=== PATIENT | male | born 1960 | race Caucasian/White ===

== ENCOUNTER 2017-12-29 23:05 | Inpatient (IN) | payer BC ==
[~2017-12-29 23:05] MED LIST: HYDROmorphone 0.5 MG/0.5 ML Syringe IVPUSH ONE; Lactated Ringers 1,000 ML IV ONE; Metoclopramide 10 MG/2 ML SDV IVPUSH ONE
--- NOTE | 2017-12-29 23:05 | EDM.PDOC ---
ED HPI GENERAL MEDICAL PROBLEM - General Chief Complaint: Abdominal Pain Stated Complaint: AMBULANCE Time Seen by Provider: 12/29/17 10:55 Source of Information: Reports: Patient History Limitations: Reports: No Limitations - History of Present Illness INITIAL COMMENTS - FREE TEXT/NARRATIVE: This 57 yo male patient reports to the ED with increased abdominal pain. The patient reports that he has a history of pancreatitis. The patient reports that he was last seen in [facility] on November 17 for similar symptoms. The patient reports that he normally has abdominal pain that he can control with Oxycodone, but today he has not been able to reduce his pain with his pain medications. The patient was given Fentanyl by [facility] prior to his arrival in the ED with no pain relief. The patient reports his current pain is a 9/10. The pain starts in his left upper abdomen and radiates to his left ear. The patient reports that he stopped drinking 2 1/2 years ago and stopped smoking November 17 of this year. 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 Left Upper Abdomen Pain Score (Numeric/FACES): 9 - Related Data Allergies Allergy/AdvReac Type Severity Reaction Status Date / Time No Known Allergies Allergy Unverified 07/07/14 12:40 Home Meds: Home Meds Aspirin [Lo-Dose Aspirin EC] 81 mg PO DAILY 12/29/17 [History] Atenolol 50 mg PO DAILY 12/29/17 [History] Clopidogrel Bisulfate [Clopidogrel] 75 mg PO DAILY 12/29/17 [History] Creon 12,000 Unit Cap 12,000 unit PO ASDIRECTED 12/29/17 [History] Isosorbide Mononitrate [Imdur] 30 mg PO ACLUNCH 12/29/17 [History] Pantoprazole Sodium 40 mg PO DAILY 12/29/17 [History] Potassium 99 mg PO DAILY 12/29/17 [History] Tylenol 500 mg PO TID PRN 12/29/17 [History] Umeclidinium [place] [Incruse Ellipta*] 1 dose INH DAILY 12/29/17 [History] oxyCODONE 5 mg PO Q8H PRN 12/29/17 [History] ED ROS GENERAL - Review of Systems Review Of Systems: ROS reveals no pertinent complaints other than HPI. ED EXAM, GI/ABD - Physical Exam Exam: See Below Exam Limited By: No Limitations General Appearance: Alert, WD/WN, Severe Distress, Thin Eyes: Bilateral: Normal Appearance, EOMI Ears: Normal External Exam, Normal Canal, Hearing Grossly Normal, Normal TMs Nose: Normal Inspection, Normal Mucosa, No Blood Throat/Mouth: Normal Inspection, Normal Lips, Normal Teeth, Normal Gums, Normal Oropharynx, Normal Voice, No Airway Compromise Head: Atraumatic, Normocephalic Neck: Normal Inspection, Supple, Non-Tender, Full Range of Motion Respiratory/Chest: No Respiratory Distress, Lungs Clear, Normal Breath Sounds, No Accessory Muscle Use, Chest Non-Tender Cardiovascular: Normal Peripheral Pulses, Regular Rate, Rhythm, No Edema, No Gallop, No JVD, No Murmur, No Rub GI/Abdominal Exam: Normal Bowel Sounds, Guarding, Tender (upper abdomen) (Male) Exam: Deferred Rectal (Males) Exam: Deferred Back Exam: Normal Inspection, Full Range of Motion, NT Extremities: Normal Inspection, Normal Range of Motion, Non-Tender, Normal Capillary Refill, No Pedal Edema Neurological: Alert, Oriented, CN II-XII Intact, Normal Cognition Psychiatric: Normal Affect, Normal Mood Skin Exam: Warm, Dry, Intact, Normal Color, No Rash Lymphatic: No Adenopathy Course - Vital Signs Last Recorded V/S: Last Vital Signs Temp 37.2 C 12/29/17 22:40 Pulse 96 12/29/17 22:40 Resp 23 H 12/29/17 22:40 BP 143/77 H 12/29/17 22:40 Pulse Ox 92 L 12/29/17 22:40 - Orders/Labs/Meds Orders: Active Orders 24 hr Category Date Time Status UA W/MICROSCOPIC [URIN] Stat Lab 12/29/17 22:56 Ordered Lactated Ringers [Ringers, Lactated] 1,000 ml Med 12/29/17 22:55 Ordered IV .BOLUS Medication Orders Lactated Ringer's (Ringers, Lactated) 1,000 mls @ 500 mls/hr IV .BOLUS ONE Stop: 12/30/17 00:54 Last Admin: 07/24/18 23:10 Dose: 500 mls/hr Labs: Laboratory Tests 12/29/17 12/29/17 12/29/17 Range/Units 23:10 23:10 23:10 WBC 8.5 (5.0-10.0) 10^3/uL RBC 4.84 (4.6-6.2) 10^6/uL Hgb 12.9 L (14.0-18.0) g/dL Hct 38.0 L (40.0-54.0) % MCV 78.5 L (80-100) fL MCH 26.7 L (27.0-34.0) pg MCHC 33.9 (33.0-35.0) g/dL Plt Count 330 (150-450) 10^3/uL Neut % (Auto) 65.9 (42.2-75.2) % Lymph % (Auto) 16.9 L (20.5-50.1) % [place] % (Auto) 11.0 H (2-8) % Eos % (Auto) 6.1 H (1.0-3.0) % Baso % (Auto) 0.1 (0.0-1.0) % Sodium 135 (135-145) mmol/L Potassium 3.7 (3.6-5.0) mmol/L Chloride 102 (101-111) mmol/L Carbon Dioxide 24.0 (21.0-31.0) mmol/L Anion Gap 12.7 BUN 15 (7-18) mg/dL Creatinine 0.6 (0.6-1.3) mg/dL Est Cr Clr Drug Dosing 109.35 mL/min Estimated GFR (MDRD) > 60 BUN/Creatinine Ratio 25.00 Glucose 96 (74-105) mg/dL Calcium 8.6 (8.4-10.2) mg/dl Magnesium 1.4 L (1.8-2.5) mg/dL Total Bilirubin 0.9 (0.2-1.0) mg/dL AST 30 (10-42) IU/L ALT 18 (10-60) IU/L Alkaline Phosphatase 73 (42-121) IU/L Total Protein 7.4 (6.7-8.2) g/dl Albumin 3.4 (3.2-5.5) g/dl Globulin 4.0 Albumin/Globulin Ratio 0.85 Amylase 1451 H (28-100) U/L Lipase 366 H (22-51) U/L Acetaminophen 12/29/17 Range/Units 23:10 WBC (5.0-10.0) 10^3/uL RBC (4.6-6.2) 10^6/uL Hgb (14.0-18.0) g/dL Hct (40.0-54.0) % MCV (80-100) fL MCH (27.0-34.0) pg MCHC (33.0-35.0) g/dL Plt Count (150-450) 10^3/uL Neut % (Auto) (42.2-75.2) % Lymph % (Auto) (20.5-50.1) % [place] % (Auto) (2-8) % Eos % (Auto) (1.0-3.0) % Baso % (Auto) (0.0-1.0) % Sodium (135-145) mmol/L Potassium (3.6-5.0) mmol/L Chloride (101-111) mmol/L Carbon Dioxide (21.0-31.0) mmol/L Anion Gap BUN (7-18) mg/dL Creatinine (0.6-1.3) mg/dL Est Cr Clr Drug Dosing mL/min Estimated GFR (MDRD) BUN/Creatinine Ratio Glucose (74-105) mg/dL Calcium (8.4-10.2) mg/dl Magnesium (1.8-2.5) mg/dL Total Bilirubin (0.2-1.0) mg/dL AST (10-42) IU/L ALT (10-60) IU/L Alkaline Phosphatase (42-121) IU/L Total Protein (6.7-8.2) g/dl Albumin (3.2-5.5) g/dl Globulin Albumin/Globulin Ratio Amylase (28-100) U/L Lipase (22-51) U/L Acetaminophen < 10 Meds: Medications Generic Name Dose Route Start Last Admin Trade Name Freq PRN Reason Stop Dose Admin Lactated Ringer's 1,000 mls @ 500 mls/hr 12/29/17 22:55 12/29/17 23:10 Ringers, Lactated IV 12/30/17 00:54 500 mls/hr .BOLUS ONE Administration Discontinued Medications Generic Name Dose Route Start Last Admin Trade Name Ramón PRN Reason Stop Dose Admin Hydromorphone HCl 1 mg 12/29/17 22:55 12/29/17 23:01 Dilaudid IVPUSH 12/29/17 22:56 1 mg ONETIME ONE Administration Hydromorphone HCl 0.5 mg 12/29/17 23:53 Dilaudid IVPUSH 12/29/17 23:54 ONETIME ONE Metoclopramide HCl 10 mg 12/29/17 23:05 12/29/17 23:11 Reglan IVPUSH 12/29/17 23:06 10 mg ONETIME ONE Administration Departure - Departure Time of Disposition: 23:55 Disposition: Admitted As Inpatient 65 Condition: Fair Clinical Impression: Acute pancreatitis Qualifiers: Pancreatitis type: unspecified pancreatitis type Acute pancreatitis complication: unspecified Qualified Code(s): K85.90 - Acute pancreatitis without necrosis or infection, unspecified - Discharge Information *PRESCRIPTION DRUG MONITORING PROGRAM REVIEWED*: Not Applicable *COPY OF PRESCRIPTION DRUG MONITORING REPORT IN PATIENT KAYDEN: Not Applicable Care Plan Goals: Discussed the examination, history, lab results and treatments with Dr. Lazo. Dr. Lazo accepted the patient for continued evaluation and further management as an acute inpatient at [facility]. - My Orders Last 24 Hours: My Active Orders 12/29/17 22:55 Lactated Ringers [Ringers, Lactated] 1,000 ml IV .BOLUS 12/29/17 22:56 UA W/MICROSCOPIC [URIN] Stat - Assessment/Plan Last 24 Hours: My Active Orders 12/29/17 22:55 Lactated Ringers [Ringers, Lactated] 1,000 ml IV .BOLUS 12/29/17 22:56 UA W/MICROSCOPIC [URIN] Stat
[2017-12-29 23:37] LABS: ANION GAP 12.7; CHLORIDE,CL 102 mmol/L (101-111); SODIUM,NA 135 mmol/L (135-145)
[2017-12-29] MEDS ORDERED: HYDROmorphone 0.5 MG/0.5 ML Syringe IVPUSH ONE (23:53)
[2017-12-30] MEDS ORDERED: Calcium Carbonate 500 MG Tab.Chew PO ONE (00:35)
[2017-12-30] MEDS ORDERED: GI Cocktail Oral Solution 30 ML PO ONE (00:36)
[2017-12-30] MEDS ORDERED: Famotidine 20 MG/2 ML SDV IVPUSH ONE (00:36)
[2017-12-30] MEDS ORDERED: oxyCODONE 5 MG Tab PO PRN (00:38)
[2017-12-30] MEDS ORDERED: Sodium Chloride 0.9% 10 ML Syringe FLUSH PRN (00:38)
[2017-12-30] MEDS ORDERED: Zolpidem 5 MG Tab PO PRN (00:38)
[2017-12-30] MEDS ORDERED: Ondansetron 4 MG/2 ML SDV IVPUSH PRN (00:38)
[2017-12-30] MEDS ORDERED: Albuterol/Ipratropium 3.0-0.5 MG/3 ML Neb Soln NEB PRN (00:38)
[2017-12-30] MEDS ORDERED: Acetaminophen 325 MG Tab PO PRN (00:38)
[2017-12-30] MEDS ORDERED: Ondansetron 4 MG Tab.DIS PO PRN (00:38)
[2017-12-30] MEDS ORDERED: Lactated Ringers 1,000 ML IV SCH (00:45)
--- NOTE | 2017-12-30 00:51 | PCM.HP ---
H&P History of Present Illness - General Date of Service: 12/30/17 Admit Problem/Dx: Admission Diagnosis/Problem Admission Diagnosis/Problem Pancreatitis Source of Information: Patient - History of Present Illness Initial Comments - Free Text/Narative: The patient is a 57-year-old gentleman with a history of alcohol abuse, COPD. The patient has been diagnosed with the pancreatitis about one half years ago. There was concern about pancreatic malignancy and had extensive evaluations at [place]. In the meantime the patient has quit drinking. He has been having chronic abdominal pain around 2 out of 10 level. This has been relatively well controlled with Tylenol and oxycodone as needed. The patient had a few exacerbations of this in the past few years. Last acute abdominal pain was admitted of November when he was hospitalized and the eye was treated for acute pancreatitis that was confirmed on CT. CT showed small fluid collections. This was thought to be pseudocysts. Also significant ascites was seen but could not be drained. The patient was basically treated conservatively for pancreatitis. Today the patient presented with severe pain. The severe pain started about 2 days ago has been progressively worse. Nevertheless he was able to eat some pork chops. He did note that fried and fatty food has been making his chronic pain usually worse. He has been taking Creon. He took Tylenol and oxycodone that helped the pain somewhat. There are occasional episodes of nausea. No diarrhea this time. No fever, the abdominal pain is sharp and radiating up to the chest and the back. Has chronic shortness of breath but not significantly worse now Left Upper Abdomen Pain Score (Numeric/FACES): 9 - Related Data Allergies/Adverse Reactions: Allergies Allergy/AdvReac Type Severity Reaction Status Date / Time No Known Allergies Allergy Verified 12/30/17 00:14 Home Medications: Home Meds Aspirin [Lo-Dose Aspirin EC] 81 mg PO DAILY 12/29/17 [History] Atenolol 50 mg PO DAILY 12/29/17 [History] Clopidogrel Bisulfate [Clopidogrel] 75 mg PO DAILY 12/29/17 [History] Creon 12,000 Unit Cap 12,000 unit PO ASDIRECTED 12/29/17 [History] Isosorbide Mononitrate [Imdur] 30 mg PO ACLUNCH 12/29/17 [History] Pantoprazole Sodium 40 mg PO DAILY 12/29/17 [History] Potassium 99 mg PO DAILY 12/29/17 [History] Tylenol 500 mg PO TID PRN 12/29/17 [History] Umeclidinium [place] [Incruse Ellipta*] 1 dose INH DAILY 12/29/17 [History] oxyCODONE 5 mg PO Q8H PRN 12/29/17 [History] Past Medical History HEENT History: Reports: Hard of Hearing Cardiovascular History: Reports: Stents Other Cardiovascular History: 1 stent Respiratory History: Reports: COPD Other Respiratory History: Emhysema. 50% lungs functional. 25% - oxygen to the blood Gastrointestinal History: Reports: Pancreatitis - Past Surgical History GI Surgical History: Reports: Cholecystectomy Other Musculoskeletal Surgeries/Procedures:: Bilateral bypass to the groin area ; stent to the left leg behind the knee Social & Family History - Tobacco Use Smoking Status *Q: Former Smoker Years of Tobacco use: 37 Packs/Tins Daily: 1.5 Used Tobacco, but Quit: Yes Month/Year Tobacco Last Used: November 17, 2017 Second Hand Smoke Exposure: No - Caffeine Use Caffeine Use: Reports: None - Alcohol Use Date of Last Drink: 10/15/17 - Recreational Drug Use Recreational Drug Use: No H&P Review of Systems - Review of Systems: Review Of Systems: See Below General: Denies: Fever Pulmonary: Reports: Shortness of Breath (Chronic) Cardiovascular: Denies: Chest Pain, Palpitations, Edema Gastrointestinal: Reports: Abdominal Pain (Severe) Psychiatric: Denies: Confusion Exam - Exam Exam: See Below - Vital Signs Vital Signs: Last Vital Signs Temp 37.8 C 12/30/17 00:23 Pulse 117 H 12/30/17 00:23 Resp 16 12/30/17 00:23 BP 134/91 H 12/30/17 00:23 Pulse Ox 98 12/30/17 00:23 Weight: 57.969 kg - Exam General: Alert, Oriented Neck: Supple Lungs: Clear to Auscultation, Normal Respiratory Effort Cardiovascular: Regular Rate, Regular Rhythm GI/Abdominal Exam: Normal Bowel Sounds, Soft, Tender (Diffusely). No: Guarding , Rigid, Rebound Extremities: No Pedal Edema Skin: Warm, Dry Neuro Extensive - Mental Status: Alert, Oriented x3, Normal Mood/Affect - Patient Data Lab Results Last 24 hrs: Laboratory Results - last 24 hr 12/29/17 12/29/17 12/29/17 Range/Units 23:10 23:10 23:10 WBC 8.5 (5.0-10.0) 10^3/uL RBC 4.84 (4.6-6.2) 10^6/uL Hgb 12.9 L (14.0-18.0) g/dL Hct 38.0 L (40.0-54.0) % MCV 78.5 L (80-100) fL MCH 26.7 L (27.0-34.0) pg MCHC 33.9 (33.0-35.0) g/dL Plt Count 330 (150-450) 10^3/uL Neut % (Auto) 65.9 (42.2-75.2) % Lymph % (Auto) 16.9 L (20.5-50.1) % [place] % (Auto) 11.0 H (2-8) % Eos % (Auto) 6.1 H (1.0-3.0) % Baso % (Auto) 0.1 (0.0-1.0) % Sodium 135 (135-145) mmol/L Potassium 3.7 (3.6-5.0) mmol/L Chloride 102 (101-111) mmol/L Carbon Dioxide 24.0 (21.0-31.0) mmol/L Anion Gap 12.7 BUN 15 (7-18) mg/dL Creatinine 0.6 (0.6-1.3) mg/dL Est Cr Clr Drug Dosing 109.35 mL/min Estimated GFR (MDRD) > 60 BUN/Creatinine Ratio 25.00 Glucose 96 (74-105) mg/dL Calcium 8.6 (8.4-10.2) mg/dl Magnesium 1.4 L (1.8-2.5) mg/dL Total Bilirubin 0.9 (0.2-1.0) mg/dL AST 30 (10-42) IU/L ALT 18 (10-60) IU/L Alkaline Phosphatase 73 (42-121) IU/L Total Protein 7.4 (6.7-8.2) g/dl Albumin 3.4 (3.2-5.5) g/dl Globulin 4.0 Albumin/Globulin Ratio 0.85 Amylase 1451 H (28-100) U/L Lipase 366 H (22-51) U/L Acetaminophen 12/29/17 Range/Units 23:10 WBC (5.0-10.0) 10^3/uL RBC (4.6-6.2) 10^6/uL Hgb (14.0-18.0) g/dL Hct (40.0-54.0) % MCV (80-100) fL MCH (27.0-34.0) pg MCHC (33.0-35.0) g/dL Plt Count (150-450) 10^3/uL Neut % (Auto) (42.2-75.2) % Lymph % (Auto) (20.5-50.1) % [place] % (Auto) (2-8) % Eos % (Auto) (1.0-3.0) % Baso % (Auto) (0.0-1.0) % Sodium (135-145) mmol/L Potassium (3.6-5.0) mmol/L Chloride (101-111) mmol/L Carbon Dioxide (21.0-31.0) mmol/L Anion Gap BUN (7-18) mg/dL Creatinine (0.6-1.3) mg/dL Est Cr Clr Drug Dosing mL/min Estimated GFR (MDRD) BUN/Creatinine Ratio Glucose (74-105) mg/dL Calcium (8.4-10.2) mg/dl Magnesium (1.8-2.5) mg/dL Total Bilirubin (0.2-1.0) mg/dL AST (10-42) IU/L ALT (10-60) IU/L Alkaline Phosphatase (42-121) IU/L Total Protein (6.7-8.2) g/dl Albumin (3.2-5.5) g/dl Globulin Albumin/Globulin Ratio Amylase (28-100) U/L Lipase (22-51) U/L Acetaminophen < 10 Result Diagrams: 12/29/17 23:10 12/29/17 23:10 Imaging Impressions Last 24 hrs: November 17, 2017 CT scan from [facility] IMPRESSION: 1. CT abdomen and pelvis with contrast. Increased ascites in the abdomen and pelvis including large amount of ascites mid to lower pelvis. Fluid collections seen in the LEFT anterior abdomen adjacent to the pancreas and stomach as discussed above. Associated inflammatory changes. Findings consistent with pancreatitis with pseudocysts. Associated infection not excluded. 2. Iliofemoral vascular graft again noted on the RIGHT. 3. Question some scattered colonic wall thickening. No evidence of bowel obstruction. Please see remainder discussion above. - Problem List (1) Chronic obstructive pulmonary disease (COPD) SNOMED Code(s): 91918845 ICD Code: J44.9 - CHRONIC OBSTRUCTIVE PULMONARY DISEASE, UNSPECIFIED Status : Acute Current Visit: Yes (2) Acute pancreatitis SNOMED Code(s): 442961305 ICD Code: K85.90 - ACUTE PANCREATITIS WITHOUT NECROSIS OR INFECTION, UNSP Status: Acute Current Visit: No Qualifiers: Pancreatitis type: unspecified pancreatitis type Acute pancreatitis complication: unspecified Qualified Code(s): K85.90 - Acute pancreatitis without necrosis or infection, unspecified Problem List Initiated/Reviewed/Updated: Yes Orders Last 24hrs: Active Orders 24 hr Category Date Time Status Patient Status [ADT] Routine ADT 12/30/17 00:38 Ordered Oxygen Therapy [RC] PRN Care 12/30/17 00:38 Ordered Peripheral IV Care [RC] . DIRECTED Care 12/30/17 00:40 Ordered RT Aerosol Therapy [RC] ASDIRECTED Care 12/30/17 00:40 Ordered Up With Assistance [RC] ASDIRECTED Care 12/30/17 00:38 Ordered VTE/DVT Education [RC] PER UNIT ROUTINE Care 12/30/17 00:38 Ordered Vital Signs [RC] Q4H Care 12/30/17 00:38 Ordered Clear Liquid Diet [DIET] Diet 12/30/17 Breakfast Ordered BASIC METABOLIC PANEL,BMP [CHEM] AM Lab 12/30/17 05:11 Ordered BASIC METABOLIC PANEL,BMP [CHEM] AM Lab 12/31/17 05:11 Ordered CBC WITH AUTO DIFF [HEME] AM Lab 12/30/17 05:11 Ordered CBC WITH AUTO DIFF [HEME] AM Lab 12/31/17 05:11 Ordered LIPASE [CHEM] AM Lab 12/30/17 05:11 Ordered UA W/MICROSCOPIC [URIN] Stat Lab 12/29/17 22:56 Ordered Acetaminophen [Tylenol] Med 12/30/17 00:38 Ordered 650 mg PO Q4H PRN Albuterol/Ipratropium [DuoNeb 3.0-0.5 MG/3 ML] Med 12/30/17 00:38 Ordered 3 ml NEB Q4H PRN Aspirin [Halfprin] Med 12/30/17 09:00 Ordered 81 mg PO DAILY Atenolol [Tenormin] Med 12/30/17 09:00 Ordered 50 mg PO DAILY Calcium Carbonate [Tums] Med 12/30/17 00:35 Once 500 mg PO ONETIME ONE Clopidogrel [Plavix] Med 12/30/17 09:00 Ordered 75 mg PO DAILY Famotidine [Pepcid] Med 12/30/17 00:36 Once 20 mg IVPUSH ONETIME ONE GI Cocktail Med 12/30/17 00:36 Once 30 ml PO ONETIME ONE Heparin Sodium Med 12/30/17 06:00 Ordered 5,000 units SUBCUT Q8HR Isosorbide Mononitrate [Imdur] Med 12/30/17 11:00 Ordered 30 mg PO ACLUNCH Lactated Ringers @ 125 MLS/HR(1000ml) Med 12/30/17 00:45 Ordered Lactated Ringers [Ringers, Lactated] 1,000 ml IV ASDIRECTED Lactated Ringers [Ringers, Lactated] 1,000 ml Med 12/29/17 22:55 Active IV .BOLUS Mometasone/Formoterol [Dulera 200-5 MCG] Med 12/30/17 07:00 Ordered 2 puff IH BIDRT Morphine Med 12/30/17 00:38 Ordered 2 mg IVPUSH Q2H PRN Ondansetron [Zofran ODT] Med 12/30/17 00:38 Ordered 4 mg PO Q6H PRN Ondansetron [Zofran] Med 12/30/17 00:38 Ordered 4 mg IVPUSH Q6H PRN Pantoprazole [ProTONIX] Med 12/30/17 09:00 Ordered 40 mg PO BID Sodium Chloride 0.9% [Saline Flush] Med 12/30/17 00:38 Ordered 10 ml FLUSH ASDIRECTED PRN Zolpidem [Ambien] Med 12/30/17 00:38 Ordered 5 mg PO BEDTIME PRN oxyCODONE Med 12/30/17 00:38 Ordered 5 mg PO Q4H PRN Antiembolic Hose [OM.PC] Per Unit Routine Oth 12/30/17 00:39 Ordered Peripheral IV Insertion Adult [OM.PC] Routine Oth 12/30/17 00:38 Ordered Resuscitation Status Routine Resus Stat 12/30/17 00:38 Ordered Medication Orders Acetaminophen (Tylenol) 650 mg PO Q4H PRN PRN Reason: Pain (Mild 1-3)/fever Al Hydroxide/Mg Hydroxide (Gi Cocktail) 30 ml PO ONETIME ONE Stop: 12/30/17 00:37 Albuterol/Ipratropium (Duoneb 3.0-0.5 Mg/3 Ml) 3 ml NEB Q4H PRN PRN Reason: shortness of breath/wheezing Aspirin (Halfprin) 81 mg PO DAILY SITA Atenolol (Tenormin) 50 mg PO DAILY SITA Calcium Carbonate/Glycine (Tums) 500 mg PO ONETIME ONE Stop: 12/30/17 00:36 Clopidogrel Bisulfate (Plavix) 75 mg PO DAILY SITA Famotidine (Pepcid) 20 mg IVPUSH ONETIME ONE Stop: 12/30/17 00:37 Heparin Sodium (Porcine) (Heparin Sodium) 5,000 units SUBCUT Q8HR [facility] Lactated Ringer's (Ringers, Lactated) 1,000 mls @ 500 mls/hr IV .BOLUS ONE Stop: 12/30/17 00:54 Last Admin: 12/29/17 23:10 Dose: 500 mls/hr Lactated Ringer's (Ringers, Lactated) 1,000 mls @ 125 mls/hr IV ASDIRECTED [facility] Isosorbide Mononitrate (Imdur) 30 mg PO ACLUNCH [facility] Mometasone Furoate/Formoterol Fumar (Dulera 200-5 Mcg) 2 puff IH BIDRT [facility] Morphine Sulfate (Morphine) 2 mg IVPUSH Q2H PRN PRN Reason: Pain (severe 7-10) Ondansetron HCl (Zofran Odt) 4 mg PO Q6H PRN PRN Reason: nausea, able to take PO Ondansetron HCl (Zofran) 4 mg IVPUSH Q6H PRN PRN Reason: Nausea/Vomiting Oxycodone HCl (Oxycodone) 5 mg PO Q4H PRN PRN Reason: Pain (moderate 4-6) Pantoprazole Sodium (Protonix) 40 mg PO BID [facility] Sodium Chloride (Saline Flush) 10 ml FLUSH ASDIRECTED PRN PRN Reason: Keep Vein Open Zolpidem Tartrate (Ambien) 5 mg PO BEDTIME PRN PRN Reason: Sleep Assessment/Plan Comment:: The patient is a 57-year-old gentleman with a history of coronary artery disease , COPD. The patient has a significant alcohol abuse history but quit about 2-1/2 years ago. The patient has been diagnosed with acute and chronic pancreatitis likely related to a history of alcohol consumption. Most recently the patient was hospitalized about a month ago with a similar episode. Since discharge the patient has been followed by, Harmeet Mcpherson nurse practitioner at [facility] clinic. Due to the ongoing pain the patient was set up for an EGD for Thursday. There was concern if it is acid reflux disease versus pancreatitis. The patient has been on proton pump inhibitor. Abdominal pain Likely secondary to pancreatitis Monitor lipase Keep npo, will give IV fluids Follow electrolytes At this point I do not think that further imaging with the be necessary. Differential diagnosis includes acid related diseases like GERD or ulcer. I will give the patient Pepcid, Tums, GI cocktail now See if there is any therapeutic response. If no significant improvement consider transferring to [facility] for EGD. For pain control we'll use oxycodone, IV morphine as needed COPD No acute exacerbation Will treat with bladder, DuoNeb as needed Coronary artery disease, peripheral artery disease Treat with aspirin, Plavix, atenolol DVT prophylaxis will be subcutaneous heparin
[2017-12-30] MEDS: Morphine 2 MG/ML Syringe IVPUSH PRN ×3 (05:39→11:50)
[2017-12-30] MEDS ORDERED: Heparin Sodium 5,000 Units/ML Vial SUBCUT SCH (06:00)
[2017-12-30 06:58] LABS: ANION GAP 10.7; CHLORIDE,CL 102 mmol/L (101-111); SODIUM,NA 132 mmol/L (135-145)
[2017-12-30] MEDS ORDERED: Formoterol/Mometasone 200-5 MCG 8.8 GM Inhaler IH SCH (07:00)
[2017-12-30] MEDS ORDERED: Atenolol 50 MG Tab PO SCH (09:00)
[2017-12-30] MEDS ORDERED: Clopidogrel 75 MG Tab PO SCH (09:00)
[2017-12-30] MEDS ORDERED: Aspirin 81 MG Tab.EC PO SCH (09:00)
[2017-12-30] MEDS ORDERED: Pantoprazole 40 MG Tab.CR PO SCH (09:00)
--- NOTE | 2017-12-30 10:32 | PCM.DCSUM1 ---
Discharge Summary - Hospital Course Free Text/Narrative:: The patient is a 57-year-old gentleman with a history of coronary artery disease , COPD. The patient has a significant alcohol abuse history but quit about 2-1/2 years ago. The patient has been diagnosed with acute and chronic pancreatitis likely related to a history of alcohol consumption. Most recently the patient was hospitalized about a month ago with a similar episode. Since discharge the patient has been followed by, Harmeet Mcpherson nurse practitioner at [facility] GI clinic. Due to the ongoing pain the patient was set up for an EGD for Thursday. There was concern if it is acid reflux disease versus pancreatitis. The patient has been on proton pump inhibitor. Abdominal pain Likely secondary to pancreatitis Monitor lipase, improved over 12 h Keep npo, will give IV fluids Follow electrolytes Differential diagnosis includes acid related diseases like GERD or ulcer. I gave the patient Pepcid, Tums, GI cocktail - not clear improvement He was set up for EGD for Thursday - will transfer to [facility] for GI evaluation For pain control we'll use oxycodone, IV morphine as needed COPD No acute exacerbation Will treat with bladder, DuoNeb as needed Coronary artery disease, peripheral artery disease Treat with aspirin, Plavix, atenolol Diagnosis: Stroke: No - Discharge Data Discharge Date: 12/30/17 Discharge Disposition: Home, Self-Care 01 Condition: Fair - Discharge Diagnosis/Problem(s) (1) Chronic obstructive pulmonary disease (COPD) SNOMED Code(s): 74041833 ICD Code: J44.9 - CHRONIC OBSTRUCTIVE PULMONARY DISEASE, UNSPECIFIED Status : Acute Current Visit: Yes (2) Acute pancreatitis SNOMED Code(s): 662418459 ICD Code: K85.90 - ACUTE PANCREATITIS WITHOUT NECROSIS OR INFECTION, UNSP Status: Acute Current Visit: No Qualifiers: Pancreatitis type: unspecified pancreatitis type Acute pancreatitis complication: unspecified Qualified Code(s): K85.90 - Acute pancreatitis without necrosis or infection, unspecified - Patient Instructions Diet: NPO Activity: As Tolerated - Discharge Plan *PRESCRIPTION DRUG MONITORING PROGRAM REVIEWED*: Not Applicable *COPY OF PRESCRIPTION DRUG MONITORING REPORT IN PATIENT KAYDEN: Not Applicable Home Medications: Home Meds Aspirin [Lo-Dose Aspirin EC] 81 mg PO DAILY 12/29/17 [History] Atenolol 50 mg PO DAILY 12/29/17 [History] Clopidogrel Bisulfate [Clopidogrel] 75 mg PO DAILY 12/29/17 [History] Creon 12,000 Unit Cap 12,000 unit PO ASDIRECTED 12/29/17 [History] Isosorbide Mononitrate [Imdur] 30 mg PO ACLUNCH 12/29/17 [History] Pantoprazole Sodium 40 mg PO DAILY 12/29/17 [History] Potassium 99 mg PO DAILY 12/29/17 [History] Tylenol 500 mg PO TID PRN 12/29/17 [History] Umeclidinium [place] [Incruse Ellipta*] 1 dose INH DAILY 12/29/17 [History] oxyCODONE 5 mg PO Q8H PRN 12/29/17 [History] Acetaminophen [Tylenol] 650 mg PO Q4H PRN tablet 12/30/17 [Rx] Albuterol/Ipratropium [DuoNeb 3.0-0.5 MG/3 ML] 3 ml NEB Q4H PRN neb 12/30/17 [ Rx] Morphine 2 mg IVPUSH Q2H PRN syringe 12/30/17 [Rx] Ondansetron [Zofran ODT] 4 mg PO Q6H PRN tab.dis 12/30/17 [Rx] Ondansetron [Zofran] 4 mg IVPUSH Q6H PRN vial 12/30/17 [Rx] Sodium Chloride 0.9% [Saline Flush] 10 ml FLUSH ASDIRECTED PRN syringe [Rx] Zolpidem [Ambien] 5 mg PO BEDTIME PRN tablet 12/30/17 [Rx] oxyCODONE 5 mg PO Q4H PRN tablet 12/30/17 [Rx] Referrals: Jaycob Pires MD [Primary Care Provider] - - General Info Date of Service: 12/30/17 Subjective Update: Continue to have severe abdominal pain requiring narcotics overnight. The GI cocktail and Tums did not make a clear difference. Functional Status: Denies: Pain Controlled, Tolerating Diet - Review of Systems General: Denies: Fever Pulmonary: Denies: Shortness of Breath Cardiovascular: Denies: Chest Pain Gastrointestinal: Reports: Abdominal Pain Neurological: Denies: Confusion - Patient Data Vitals - Most Recent: Last Vital Signs Temp 37.4 C 12/30/17 08:26 Pulse 112 H 12/30/17 08:54 Resp 20 12/30/17 08:26 BP 122/77 12/30/17 08:54 Pulse Ox 92 L 12/30/17 08:26 Weight - Most Recent: 57.969 kg I&O - Last 24 hours: Intake & Output 12/29/17 12/30/17 12/30/17 22:59 06:59 14:59 Intake Total 2060 Output Total 220 Balance 1840 Lab Results - Last 24 hrs: Laboratory Results - last 24 hr 12/29/17 12/29/17 12/29/17 Range/Units 23:10 23:10 23:10 WBC 8.5 (5.0-10.0) 10^3/uL RBC 4.84 (4.6-6.2) 10^6/uL Hgb 12.9 L (14.0-18.0) g/dL Hct 38.0 L (40.0-54.0) % MCV 78.5 L (80-100) fL MCH 26.7 L (27.0-34.0) pg MCHC 33.9 (33.0-35.0) g/dL Plt Count 330 (150-450) 10^3/uL Neut % (Auto) 65.9 (42.2-75.2) % Lymph % (Auto) 16.9 L (20.5-50.1) % [place] % (Auto) 11.0 H (2-8) % Eos % (Auto) 6.1 H (1.0-3.0) % Baso % (Auto) 0.1 (0.0-1.0) % Sodium 135 (135-145) mmol/L Potassium 3.7 (3.6-5.0) mmol/L Chloride 102 (101-111) mmol/L Carbon Dioxide 24.0 (21.0-31.0) mmol/L Anion Gap 12.7 BUN 15 (7-18) mg/dL Creatinine 0.6 (0.6-1.3) mg/dL Est Cr Clr Drug Dosing 109.35 mL/min Estimated GFR (MDRD) > 60 BUN/Creatinine Ratio 25.00 Glucose 96 (74-105) mg/dL Calcium 8.6 (8.4-10.2) mg/dl Magnesium 1.4 L (1.8-2.5) mg/dL Total Bilirubin 0.9 (0.2-1.0) mg/dL AST 30 (10-42) IU/L ALT 18 (10-60) IU/L Alkaline Phosphatase 73 (42-121) IU/L Total Protein 7.4 (6.7-8.2) g/dl Albumin 3.4 (3.2-5.5) g/dl Globulin 4.0 Albumin/Globulin Ratio 0.85 Amylase 1451 H (28-100) U/L Lipase 366 H (22-51) U/L Urine Color (YELLOW) Urine Appearance (CLEAR) Urine pH (5.0-9.0) Ur Specific [place] (1.005-1.030) Urine Protein (NEGATIVE) Urine Glucose (UA) (NEGATIVE) Urine Ketones (NEGATIVE) Urine Occult Blood (NEGATIVE) Urine Nitrite (NEGATIVE) Urine Bilirubin (NEGATIVE) Urine Urobilinogen (0.2-1.0) mg/dL Ur Leukocyte Esterase (NEGATIVE) Urine RBC /HPF Urine WBC (0-5/HPF) /HPF Ur Epithelial Cells /HPF Urine Bacteria (0-FEW/HPF) /HPF Urine Mucus /LPF Acetaminophen 12/29/17 12/30/17 12/30/17 Range/Units 23:10 01:25 06:20 WBC 8.2 (5.0-10.0) 10^3/uL RBC 4.46 L (4.6-6.2) 10^6/uL Hgb 11.9 L (14.0-18.0) g/dL Hct 34.9 L (40.0-54.0) % MCV 78.3 L (80-100) fL MCH 26.7 L (27.0-34.0) pg MCHC 34.1 (33.0-35.0) g/dL Plt Count 378 (150-450) 10^3/uL Neut % (Auto) 61.3 (42.2-75.2) % Lymph % (Auto) 23.8 (20.5-50.1) % [place] % (Auto) 11.8 H (2-8) % Eos % (Auto) 2.9 (1.0-3.0) % Baso % (Auto) 0.2 (0.0-1.0) % Sodium (135-145) mmol/L Potassium (3.6-5.0) mmol/L Chloride (101-111) mmol/L Carbon Dioxide (21.0-31.0) mmol/L Anion Gap BUN (7-18) mg/dL Creatinine (0.6-1.3) mg/dL Est Cr Clr Drug Dosing mL/min Estimated GFR (MDRD) BUN/Creatinine Ratio Glucose (74-105) mg/dL Calcium (8.4-10.2) mg/dl Magnesium (1.8-2.5) mg/dL Total Bilirubin (0.2-1.0) mg/dL AST (10-42) IU/L ALT (10-60) IU/L Alkaline Phosphatase (42-121) IU/L Total Protein (6.7-8.2) g/dl Albumin (3.2-5.5) g/dl Globulin Albumin/Globulin Ratio Amylase (28-100) U/L Lipase (22-51) U/L Urine Color Yellow (YELLOW) Urine Appearance Clear (CLEAR) Urine pH 5.5 (5.0-9.0) Ur Specific [place] 1.025 (1.005-1.030) Urine Protein Trace H (NEGATIVE) Urine Glucose (UA) Negative (NEGATIVE) Urine Ketones 40 H (NEGATIVE) Urine Occult Blood Negative (NEGATIVE) Urine Nitrite Negative (NEGATIVE) Urine Bilirubin Negative (NEGATIVE) Urine Urobilinogen 0.2 (0.2-1.0) mg/dL Ur Leukocyte Esterase Negative (NEGATIVE) Urine RBC 0-5 /HPF Urine WBC 0-5 (0-5/HPF) /HPF Ur Epithelial Cells Rare /HPF Urine Bacteria Rare (0-FEW/HPF) /HPF Urine Mucus Rare /LPF Acetaminophen < 10 07/25/18 Range/Units 06:20 WBC (5.0-10.0) 10^3/uL RBC (4.6-6.2) 10^6/uL Hgb (14.0-18.0) g/dL Hct (40.0-54.0) % MCV (80-100) fL MCH (27.0-34.0) pg MCHC (33.0-35.0) g/dL Plt Count (150-450) 10^3/uL Neut % (Auto) (42.2-75.2) % Lymph % (Auto) (20.5-50.1) % [place] % (Auto) (2-8) % Eos % (Auto) (1.0-3.0) % Baso % (Auto) (0.0-1.0) % Sodium 132 L (135-145) mmol/L Potassium 3.7 (3.6-5.0) mmol/L Chloride 102 (101-111) mmol/L Carbon Dioxide 23.0 (21.0-31.0) mmol/L Anion Gap 10.7 BUN 14 (7-18) mg/dL Creatinine 0.6 (0.6-1.3) mg/dL Est Cr Clr Drug Dosing 110.03 mL/min Estimated GFR (MDRD) > 60 BUN/Creatinine Ratio Glucose 97 (74-105) mg/dL Calcium 8.3 L (8.4-10.2) mg/dl Magnesium (1.8-2.5) mg/dL Total Bilirubin (0.2-1.0) mg/dL AST (10-42) IU/L ALT (10-60) IU/L Alkaline Phosphatase (42-121) IU/L Total Protein (6.7-8.2) g/dl Albumin (3.2-5.5) g/dl Globulin Albumin/Globulin Ratio Amylase (28-100) U/L Lipase 195 H (22-51) U/L Urine Color (YELLOW) Urine Appearance (CLEAR) Urine pH (5.0-9.0) Ur Specific [place] (1.005-1.030) Urine Protein (NEGATIVE) Urine Glucose (UA) (NEGATIVE) Urine Ketones (NEGATIVE) Urine Occult Blood (NEGATIVE) Urine Nitrite (NEGATIVE) Urine Bilirubin (NEGATIVE) Urine Urobilinogen (0.2-1.0) mg/dL Ur Leukocyte Esterase (NEGATIVE) Urine RBC /HPF Urine WBC (0-5/HPF) /HPF Ur Epithelial Cells /HPF Urine Bacteria (0-FEW/HPF) /HPF Urine Mucus /LPF Acetaminophen Med Orders - Current: Current Medications Acetaminophen (Tylenol) 650 mg PO Q4H PRN PRN Reason: Pain (Mild 1-3)/fever Albuterol/Ipratropium (Duoneb 3.0-0.5 Mg/3 Ml) 3 ml NEB Q4H PRN PRN Reason: shortness of breath/wheezing Aspirin (Halfprin) 81 mg PO DAILY [facility] Last Admin: 12/30/17 08:53 Dose: 81 mg Atenolol (Tenormin) 50 mg PO DAILY [facility] Last Admin: 12/30/17 08:54 Dose: 50 mg Clopidogrel Bisulfate (Plavix) 75 mg PO DAILY [facility] Last Admin: 12/30/17 08:55 Dose: 75 mg Heparin Sodium (Porcine) (Heparin Sodium) 5,000 units SUBCUT Q8HR [facility] Last Admin: 12/30/17 05:40 Dose: 5,000 units Lactated Ringer's (Ringers, Lactated) 1,000 mls @ 125 mls/hr IV ASDIRECTED [facility] Last Admin: 12/30/17 03:29 Dose: 125 mls/hr Isosorbide Mononitrate (Imdur) 30 mg PO ACLUNCH [facility] Mometasone Furoate/Formoterol Fumar (Dulera 200-5 Mcg) 2 puff IH BIDRT [facility] Last Admin: 12/30/17 09:01 Dose: 2 puff Morphine Sulfate (Morphine) 2 mg IVPUSH Q2H PRN PRN Reason: Pain (severe 7-10) Last Admin: 12/30/17 09:02 Dose: 2 mg Ondansetron HCl (Zofran Odt) 4 mg PO Q6H PRN PRN Reason: nausea, able to take PO Ondansetron HCl (Zofran) 4 mg IVPUSH Q6H PRN PRN Reason: Nausea/Vomiting Oxycodone HCl (Oxycodone) 5 mg PO Q4H PRN PRN Reason: Pain (moderate 4-6) Last Admin: 12/30/17 02:39 Dose: 5 mg Pantoprazole Sodium (Protonix) 40 mg PO BID [facility] Last Admin: 12/30/17 08:54 Dose: 40 mg Sodium Chloride (Saline Flush) 10 ml FLUSH ASDIRECTED PRN PRN Reason: Keep Vein Open Zolpidem Tartrate (Ambien) 5 mg PO BEDTIME PRN PRN Reason: Sleep Discontinued Medications Al Hydroxide/Mg Hydroxide (Gi Cocktail) 30 ml PO ONETIME ONE Stop: 12/30/17 00:37 Last Admin: 12/30/17 01:10 Dose: 30 ml Calcium Carbonate/Glycine (Tums) 500 mg PO ONETIME ONE Stop: 12/30/17 00:36 Last Admin: 12/30/17 01:10 Dose: 500 mg Famotidine (Pepcid) 20 mg IVPUSH ONETIME ONE Stop: 12/30/17 00:37 Last Admin: 12/30/17 01:10 Dose: 20 mg Hydromorphone HCl (Dilaudid) 1 mg IVPUSH ONETIME ONE Stop: 12/29/17 22:56 Last Admin: 12/29/17 23:01 Dose: 1 mg Hydromorphone HCl (Dilaudid) 0.5 mg IVPUSH ONETIME ONE Stop: 12/29/17 23:54 Last Admin: 12/30/17 00:01 Dose: 0.5 mg Lactated Ringer's (Ringers, Lactated) 1,000 mls @ 500 mls/hr IV .BOLUS ONE Stop: 12/30/17 00:54 Last Admin: 12/29/17 23:10 Dose: 500 mls/hr Metoclopramide HCl (Reglan) 10 mg IVPUSH ONETIME ONE Stop: 12/29/17 23:06 Last Admin: 12/29/17 23:11 Dose: 10 mg - Exam General: Reports: Alert, Oriented Neck: Reports: Supple Lungs: Reports: Clear to Auscultation, Normal Respiratory Effort Cardiovascular: Reports: Regular Rate, Regular Rhythm GI/Abdominal Exam: Normal Bowel Sounds, Soft, Non-Tender Extremities: No Pedal Edema
[2017-12-30] MEDS ORDERED: Isosorbide Mononitrate 30 MG Tab.ER PO SCH (11:00)
== END 2017-12-30 12:10 | disposition home or self-care (01) | DRG 282 ==
LOC: DL.ED 23:05 → DL.MS 12-30 00:01 → UNDOADMIN 12-30 00:01 → DL.MS 12-30 00:38
PROVIDERS: ADMIT Internal Medicine; ATTEND Internal Medicine
DX: K85.20 Alcohol induced acute pancreatitis without necrosis or infection (principal); K86.0 Alcohol-induced chronic pancreatitis; J44.9 Chronic obstructive pulmonary disease, unspecified; I25.10 Atherosclerotic heart disease of native coronary artery without angina pectoris; H91.90 Unspecified hearing loss, unspecified ear; F10.21 Alcohol dependence, in remission; I73.9 Peripheral vascular disease, unspecified; Z79.899 Other long term (current) drug therapy; Z79.82 Long term (current) use of aspirin; Z87.891 Personal history of nicotine dependence
CPT/HCPCS: 36415; 80048; 80053; 81001; 82150; 83690; 83735; 85025; 96361; 96374; 96375; 96376; 99285; A9270-GY; G0480; J1170; J1644; J2270; J2765; J3490; J7120

== ENCOUNTER 2018-02-18 21:31 | Inpatient (IN) | payer BC ==
[2018-02-18] MEDS ORDERED: Sodium Chloride 0.9% 1,000 ML IV ONE (22:01)
[2018-02-18] MEDS ORDERED: HYDROmorphone 1 MG/ML Syringe IVPUSH ONE (22:03)
[2018-02-18] MEDS ORDERED: Metoclopramide 10 MG/2 ML SDV IVPUSH ONE (22:03)
--- NOTE | 2018-02-18 22:06 | EDM.PDOC ---
ED HPI GENERAL MEDICAL PROBLEM - General Chief Complaint: Abdominal Pain Stated Complaint: ACUTE PANCREATITIS Time Seen by Provider: 02/18/18 22:04 Source of Information: Reports: Patient, Family History Limitations: Reports: No Limitations - History of Present Illness INITIAL COMMENTS - FREE TEXT/NARRATIVE: c/o recurrent exac pancreatitis, present episode started about 1pm or so. Epigastric Pain Score (Numeric/FACES): 9 - Related Data Allergies Allergy/AdvReac Type Severity Reaction Status Date / Time No Known Allergies Allergy Verified 02/18/18 21:45 Home Meds: Home Meds Aspirin [Lo-Dose Aspirin EC] 81 mg PO DAILY 12/29/17 [History] Atenolol 50 mg PO DAILY 12/29/17 [History] Clopidogrel Bisulfate [Clopidogrel] 75 mg PO DAILY 12/29/17 [History] Creon 12,000 Unit Cap 12,000 unit PO ASDIRECTED 12/29/17 [History] Isosorbide Mononitrate [Imdur] 30 mg PO ACLUNCH 12/29/17 [History] Pantoprazole Sodium 40 mg PO DAILY 12/29/17 [History] Potassium 99 mg PO DAILY 12/29/17 [History] Tylenol 500 mg PO TID PRN 12/29/17 [History] Umeclidinium [place] [Incruse Ellipta*] 1 dose INH DAILY 12/29/17 [History] Acetaminophen [Tylenol] 650 mg PO Q4H PRN tablet 12/30/17 [Rx] oxyCODONE 5 mg PO Q4H PRN tablet 12/30/17 [Rx] Albuterol [Ventolin HFA] 2 puff INH Q6HR PRN 02/18/18 [History] Apixaban [Eliquis] 2.5 mg PO BID 02/18/18 [History] Past Medical History HEENT History: Reports: Hard of Hearing Cardiovascular History: Reports: Stents Other Cardiovascular History: 1 stent Respiratory History: Reports: COPD Other Respiratory History: Emhysema. 50% lungs functional. 25% - oxygen to the blood Gastrointestinal History: Reports: Pancreatitis Genitourinary History: Reports: UTI, Recurrent Musculoskeletal History: Reports: Fracture Other Musculoskeletal History: right little finger fx,little toe on right fx - Infectious Disease History Infectious Disease History: Reports: Chicken Pox - Past Surgical History GI Surgical History: Reports: Cholecystectomy Other Musculoskeletal Surgeries/Procedures:: Bilateral bypass to the groin area ; stent to the left leg behind the knee Social & Family History - Family History Family Medical History: Noncontributory - Tobacco Use Smoking Status *Q: Former Smoker Used Tobacco, but Quit: Yes Month/Year Tobacco Last Used: november 17 2017 - Caffeine Use Caffeine Use: Reports: None - Recreational Drug Use Recreational Drug Use: No ED ROS GENERAL - Review of Systems Review Of Systems: ROS reveals no pertinent complaints other than HPI. ED EXAM, GI/ABD - Physical Exam Exam: See Below Exam Limited By: No Limitations General Appearance: Alert, WD/WN, Mild Distress, Moderate Distress, Other (pain & retching ) Ears: Hearing Grossly Normal Throat/Mouth: Normal Voice, No Airway Compromise Head: Atraumatic Neck: Non-Tender, Full Range of Motion Respiratory/Chest: No Respiratory Distress Cardiovascular: Regular Rate, Rhythm GI/Abdominal Exam: Guarding, Tender, Other (periumb-epiG region). No: Distended , Rigid, Rebound Neurological: Alert, Oriented, Normal Cognition, Normal Gait, No Motor/Sensory Deficits Psychiatric: Tearful Skin Exam: Warm, Dry, Normal Color Lymphatic: No Adenopathy Course - Vital Signs Last Recorded V/S: Last Vital Signs Temp 36.4 C 02/18/18 21:36 Pulse 85 02/18/18 21:36 Resp 18 02/18/18 21:36 BP 144/68 H 02/18/18 21:36 Pulse Ox 96 02/18/18 21:36 - Orders/Labs/Meds Orders: Active Orders 24 hr Category Date Time Status Sodium Chloride 0.9% [Normal Saline] 1,000 ml Med 02/18/18 22:01 Active IV .BOLUS Medication Orders Sodium Chloride (Normal Saline) 1,000 mls @ 999 mls/hr IV .BOLUS ONE Stop: 02/18/18 23:01 Last Admin: 02/18/18 22:14 Dose: 999 mls/hr Labs: Laboratory Tests 02/18/18 02/18/18 Range/Units 22:09 22:09 WBC 6.8 (5.0-10.0) 10^3/uL RBC 4.43 L (4.6-6.2) 10^6/uL Hgb 11.5 L (14.0-18.0) g/dL Hct 35.5 L (40.0-54.0) % MCV 80.1 (80-100) fL MCH 26.0 L (27.0-34.0) pg MCHC 32.4 L (33.0-35.0) g/dL Plt Count 445 (150-450) 10^3/uL Neut % (Auto) 69.4 (42.2-75.2) % Lymph % (Auto) 19.3 L (20.5-50.1) % [place] % (Auto) 6.5 (2-8) % Eos % (Auto) 4.7 H (1.0-3.0) % Baso % (Auto) 0.1 (0.0-1.0) % Sodium 138 (135-145) mmol/L Potassium 3.9 (3.6-5.0) mmol/L Chloride 104 (101-111) mmol/L Carbon Dioxide 27.0 (21.0-31.0) mmol/L Anion Gap 10.9 BUN 14 (7-18) mg/dL Creatinine 0.6 (0.6-1.3) mg/dL Est Cr Clr Drug Dosing 101.60 mL/min Estimated GFR (MDRD) > 60 BUN/Creatinine Ratio 23.33 Glucose 124 H (74-105) mg/dL Calcium 8.8 (8.4-10.2) mg/dl Total Bilirubin 0.8 (0.2-1.0) mg/dL AST 46 H (10-42) IU/L ALT 30 (10-60) IU/L Alkaline Phosphatase 94 (42-121) IU/L Total Protein 7.8 (6.7-8.2) g/dl Albumin 3.5 (3.2-5.5) g/dl Globulin 4.3 Albumin/Globulin Ratio 0.81 Amylase 1100 H (28-100) U/L Lipase 262 H (22-51) U/L Meds: Medications Generic Name Dose Route Start Last Admin Trade Name Freq PRN Reason Stop Dose Admin Sodium Chloride 1,000 mls @ 999 mls/hr 02/18/18 22:01 02/18/18 22:14 Normal Saline IV 02/18/18 23:01 999 mls/hr .BOLUS ONE Administration Discontinued Medications Generic Name Dose Route Start Last Admin Trade Name Freq PRN Reason Stop Dose Admin Hydromorphone HCl 1 mg 02/18/18 22:03 02/18/18 22:17 Dilaudid IVPUSH 02/18/18 22:04 1 mg ONETIME ONE Administration Metoclopramide HCl 10 mg 02/18/18 22:03 02/18/18 22:14 Reglan IVPUSH 02/18/18 22:04 10 mg ONETIME ONE Administration - Re-Assessments/Exams Free Text/Narrative Re-Assessment/Exam: 02/18/18 22:[address] Estrada who kindly admitted pt. Departure - Departure Time of Disposition: 22:49 Disposition: Admitted As Inpatient 65 Condition: Fair Clinical Impression: Acute pancreatitis Qualifiers: Pancreatitis type: unspecified pancreatitis type Acute pancreatitis complication: unspecified Qualified Code(s): K85.90 - Acute pancreatitis without necrosis or infection, unspecified - Discharge Information Forms: ED Department Discharge - My Orders Last 24 Hours: My Active Orders 02/18/18 22:01 Sodium Chloride 0.9% [Normal Saline] 1,000 ml IV .BOLUS - Assessment/Plan Last 24 Hours: My Active Orders 02/18/18 22:01 Sodium Chloride 0.9% [Normal Saline] 1,000 ml IV .BOLUS
[2018-02-18 22:36] LABS: ANION GAP 10.9; CHLORIDE,CL 104 mmol/L (101-111); SODIUM,NA 138 mmol/L (135-145)
[2018-02-18] MEDS ORDERED: Acetaminophen 325 MG Tab PO PRN (23:35)
[2018-02-18] MEDS ORDERED: Ondansetron 4 MG/2 ML SDV IVPUSH PRN (23:35)
[2018-02-18] MEDS ORDERED: oxyCODONE 5 MG Tab PO PRN ×2 (23:35→23:43)
[2018-02-18] MEDS ORDERED: Albuterol 6.7 GM Inhaler INH PRN (23:43)
--- NOTE | 2018-02-18 23:52 | PCM.HP ---
H&P History of Present Illness - General Date of Service: 02/18/18 Admit Problem/Dx: Admission Diagnosis/Problem Admission Diagnosis/Problem Pancreatitis Source of Information: Patient History Limitations: Reports: No Limitations - History of Present Illness Initial Comments - Free Text/Narative: Patient is 57 y/o with recurrent pancreatitis, s/p cholecystectomy, PAD s/p stent, CAD s/p stent, HTN. He presented with abdominal pain that started this afternoon. Pain is generalized but mainly epigastric. On and off and associated with N/V. He is said pain is similar to his pancreatitis. He denies alcohol use. He vomited 2x. No melena, hematichezia or hematemesis. He denies fever, chills. In the ER lipase was elevated and patient was sent for admission. Onset of Symptoms: Reports: Gradual Duration of Symptoms: Reports: Day(s):, Getting Worse, Intermittent, Recurring, Waxing/Waning Location: Reports: Abdomen Quality: Reports: Sharp Improves with: Reports: None Worsens with: Reports: None Context: Reports: Activity/Exercise Associated Symptoms: Reports: Loss of Appetite, Nausea/Vomiting Epigastric Pain Score (Numeric/FACES): 9 - Related Data Allergies/Adverse Reactions: Allergies Allergy/AdvReac Type Severity Reaction Status Date / Time No Known Allergies Allergy Verified 02/18/18 21:45 Home Medications: Home Meds Aspirin [Lo-Dose Aspirin EC] 81 mg PO DAILY 12/29/17 [History] Atenolol 50 mg PO DAILY 12/29/17 [History] Clopidogrel Bisulfate [Clopidogrel] 75 mg PO DAILY 12/29/17 [History] Creon 12,000 Unit Cap 12,000 unit PO ASDIRECTED 12/29/17 [History] Isosorbide Mononitrate [Imdur] 30 mg PO ACLUNCH 12/29/17 [History] Pantoprazole Sodium 40 mg PO DAILY 12/29/17 [History] Potassium 99 mg PO DAILY 12/29/17 [History] Tylenol 500 mg PO TID PRN 12/29/17 [History] Umeclidinium [place] [Incruse Ellipta*] 1 dose INH DAILY 12/29/17 [History] Acetaminophen [Tylenol] 650 mg PO Q4H PRN tablet 12/30/17 [Rx] oxyCODONE 5 mg PO Q4H PRN tablet 12/30/17 [Rx] Albuterol [Ventolin HFA] 2 puff INH Q6HR PRN 02/18/18 [History] Apixaban [Eliquis] 2.5 mg PO BID 02/18/18 [History] Past Medical History HEENT History: Reports: Hard of Hearing Cardiovascular History: Reports: Stents Other Cardiovascular History: 1 stent Respiratory History: Reports: COPD Other Respiratory History: Emhysema. 50% lungs functional. 25% - oxygen to the blood Gastrointestinal History: Reports: Pancreatitis Genitourinary History: Reports: UTI, Recurrent Musculoskeletal History: Reports: Fracture Other Musculoskeletal History: right little finger fx,little toe on right fx - Infectious Disease History Infectious Disease History: Reports: Chicken Pox - Past Surgical History GI Surgical History: Reports: Cholecystectomy Other Musculoskeletal Surgeries/Procedures:: Bilateral bypass to the groin area ; stent to the left leg behind the knee Social & Family History - Family History Family Medical History: Noncontributory - Tobacco Use Smoking Status *Q: Former Smoker Used Tobacco, but Quit: Yes Month/Year Tobacco Last Used: november 17 2017 - Caffeine Use Caffeine Use: Reports: None - Recreational Drug Use Recreational Drug Use: No H&P Review of Systems - Review of Systems: Review Of Systems: See Below General: Reports: Decreased Appetite HEENT: Reports: No Symptoms Pulmonary: Reports: No Symptoms Cardiovascular: Reports: No Symptoms Gastrointestinal: Reports: Abdominal Pain, Anorexia, Diarrhea, Decreased Appetite, Nausea, Vomiting Genitourinary: Reports: No Symptoms Musculoskeletal: Reports: No Symptoms Skin: Reports: No Symptoms Psychiatric: Reports: No Symptoms Neurological: Reports: No Symptoms Hematologic/Lymphatic: Reports: No Symptoms Immunologic: Reports: No Symptoms Exam - Exam Exam: See Below - Vital Signs Vital Signs: Last Vital Signs Temp 98.0 F 02/18/18 23:08 Pulse 72 02/18/18 23:08 Resp 20 02/18/18 23:08 BP 158/78 H 02/18/18 23:08 Pulse Ox 95 02/18/18 23:08 Weight: 122 lb 3.2 oz - Exam Quality Assessment: DVT Prophylaxis General: Alert, Oriented, 4 HEENT: PERRLA, Hearing Intact, Mucosa Moist & [place], Nares Patent, Normal Nasal Septum, Posterior Pharynx Clear, Conjunctiva Clear, EOMI, EACs Clear, TMs Clear Neck: Supple, Trachea Midline, 2 Lungs: Clear to Auscultation, Normal Respiratory Effort Cardiovascular: Regular Rate, Regular Rhythm GI/Abdominal Exam: Normal Bowel Sounds, Soft, No Organomegaly, No Distention, No Abnormal Bruit, No Mass, Pelvis Stable, Tender (Male) Exam: No Hernia, Normal Inspection, Normal Prostate, Circumcised Rectal (Males) Exam: Normal Exam, Normal Rectal Tone, Prostate Normal Back Exam: Normal Inspection, Full Range of Motion, NT Extremities: Normal Inspection, Normal Range of Motion, Non-Tender, No Pedal Edema, Normal Capillary Refill Skin: Warm, Dry, Intact Neurological: Cranial Nerves Intact, Reflexes Equal Bilateral Neuro Extensive - Mental Status: Alert, Oriented x3, Normal Mood/Affect, Normal Cognition Neuro Extensive - Motor, Sensory, Reflexes: CN II-XII Intact, Normal Gait, Normal Reflexes Psychiatric: Alert, Normal Affect, Normal Mood - Patient Data Lab Results Last 24 hrs: Laboratory Results - last 24 hr 02/18/18 02/18/18 Range/Units 22:09 22:09 WBC 6.8 (5.0-10.0) 10^3/uL RBC 4.43 L (4.6-6.2) 10^6/uL Hgb 11.5 L (14.0-18.0) g/dL Hct 35.5 L (40.0-54.0) % MCV 80.1 (80-100) fL MCH 26.0 L (27.0-34.0) pg MCHC 32.4 L (33.0-35.0) g/dL Plt Count 445 (150-450) 10^3/uL Neut % (Auto) 69.4 (42.2-75.2) % Lymph % (Auto) 19.3 L (20.5-50.1) % [place] % (Auto) 6.5 (2-8) % Eos % (Auto) 4.7 H (1.0-3.0) % Baso % (Auto) 0.1 (0.0-1.0) % Sodium 138 (135-145) mmol/L Potassium 3.9 (3.6-5.0) mmol/L Chloride 104 (101-111) mmol/L Carbon Dioxide 27.0 (21.0-31.0) mmol/L Anion Gap 10.9 BUN 14 (7-18) mg/dL Creatinine 0.6 (0.6-1.3) mg/dL Est Cr Clr Drug Dosing 101.60 mL/min Estimated GFR (MDRD) > 60 BUN/Creatinine Ratio 23.33 Glucose 124 H (74-105) mg/dL Calcium 8.8 (8.4-10.2) mg/dl Total Bilirubin 0.8 (0.2-1.0) mg/dL AST 46 H (10-42) IU/L ALT 30 (10-60) IU/L Alkaline Phosphatase 94 (42-121) IU/L Total Protein 7.8 (6.7-8.2) g/dl Albumin 3.5 (3.2-5.5) g/dl Globulin 4.3 Albumin/Globulin Ratio 0.81 Amylase 1100 H (28-100) U/L Lipase 262 H (22-51) U/L Result Diagrams: 02/19/18 06:20 02/19/18 06:20 - Problem List (1) PAD (peripheral artery disease) SNOMED Code(s): 137425391, 835298213 ICD Code: I73.9 - PERIPHERAL VASCULAR DISEASE, UNSPECIFIED Status: Acute Current Visit: Yes Problem List Initiated/Reviewed/Updated: Yes Orders Last 24hrs: Active Orders 24 hr Category Date Time Status Patient Status [ADT] Routine ADT 02/18/18 23:35 Ordered Ambulate [RC] ASDIRECTED Care 02/18/18 23:35 Ordered Notify Provider Vital Signs [RC] ASDIRECTED Care 02/18/18 23:37 Ordered Oxygen Therapy [RC] PRN Care 02/18/18 23:35 Ordered VTE/DVT Education [RC] PER UNIT ROUTINE Care 02/18/18 23:35 Ordered Vital Signs [RC] Q4H Care 02/18/18 23:35 Ordered Nothing per Oral Now Diet [DIET] Diet 02/18/18 Breakfast Ordered BASIC METABOLIC PANEL,BMP [CHEM] AM Lab 02/19/18 05:11 Ordered CBC WITH AUTO DIFF [HEME] Timed Lab 02/19/18 23:00 Ordered MAGNESIUM [CHEM] Stat Lab 02/18/18 23:35 Ordered PHOSPHORUS [CHEM] Stat Lab 02/18/18 23:35 Ordered Acetaminophen [Tylenol] Med 02/18/18 23:35 Ordered 650 mg PO Q4H PRN Albuterol [Proventil HFA] Med 02/18/18 23:43 Ordered 2 puff INH Q6HR PRN Apixaban [Eliquis] Med 02/19/18 09:00 Ordered 2.5 mg PO BID Aspirin [Halfprin] Med 02/19/18 09:00 Ordered 81 mg PO DAILY Atenolol [Tenormin] Med 02/19/18 09:00 Ordered 50 mg PO DAILY Clopidogrel [Plavix] Med 02/19/18 09:00 Ordered 75 mg PO DAILY Creon 12,000 Unit Cap Med 02/18/18 23:45 Ordered 12,000 unit PO ASDIRECTED Heparin Sodium Med 02/18/18 23:45 Ordered 5,000 units SUBCUT Q12H Isosorbide Mononitrate [Imdur] Med 02/19/18 11:00 Ordered 30 mg PO ACLUNCH Ondansetron [Zofran] Med 02/18/18 23:35 Ordered 4 mg IVPUSH Q8H PRN Pantoprazole [ProTONIX] Med 02/19/18 09:00 Ordered 40 mg PO DAILY Potassium [Potassium] Med 02/19/18 09:00 Ordered 99 mg PO DAILY Sodium Chloride 0.9% @ 125 MLS/HR (1000ml) Med 02/18/18 23:45 Ordered Sodium Chloride 0.9% [Normal Saline] 1,000 ml IV ASDIRECTED Umeclidinium [place] [Incruse Ellipta*] Med 02/19/18 09:00 Ordered 1 dose INH DAILY oxyCODONE Med 02/18/18 23:43 Ordered 5 mg PO Q4H PRN oxyCODONE Med 02/18/18 23:35 Ordered 5 mg PO Q6H PRN Resuscitation Status Routine Resus Stat 02/18/18 23:35 Ordered Medication Orders Acetaminophen (Tylenol) 650 mg PO Q4H PRN PRN Reason: Pain (Mild 1-3)/fever Albuterol (Proventil Hfa) gm INH Q6HR PRN PRN Reason: Wheezing Aspirin (Halfprin) 81 mg PO DAILY [facility] Atenolol (Tenormin) 50 mg PO DAILY [facility] Clopidogrel Bisulfate (Plavix) 75 mg PO DAILY [facility] Heparin Sodium (Porcine) (Heparin Sodium) 5,000 units SUBCUT Q12H [facility] Isosorbide Mononitrate (Imdur) 30 mg PO ACLUNCH [facility] Non-Formulary Medication (Apixaban [Eliquis]) 2.5 mg PO BID [facility] Non-Formulary Medication (Creon 12,000 Unit Cap) 12,000 unit PO ASDIRECTED [facility] Non-Formulary Medication (Potassium [Potassium]) 99 mg PO DAILY [facility] Ondansetron HCl (Zofran) 4 mg IVPUSH Q8H PRN PRN Reason: Nausea/Vomiting Oxycodone HCl (Oxycodone) 5 mg PO Q6H PRN PRN Reason: Pain (moderate 4-6) Oxycodone HCl (Oxycodone) 5 mg PO Q4H PRN PRN Reason: Pain (moderate 4-6) Pantoprazole Sodium (Protonix) 40 mg PO DAILY [facility] Assessment/Plan Comment:: Acute on Chronic Pancreatitis IVF NPO Roxicodone and fentanyl prn for pain Zofran prn for Nausea/Vomiting repeta lipase in the AM CAD s/p stent stable continue home medication PAD continue home medication COPD stable Due-Nebs prn Full code
[2018-02-19] MEDS: fentaNYL 100 MCG/2 ML SDV IVPUSH PRN ×2 (00:16→06:21)
[2018-02-19] MEDS: Heparin Sodium 5,000 Units/ML Vial SUBCUT SCH ×2 (00:16→12:21)
[2018-02-19] MEDS: Sodium Chloride 0.9% 1,000 ML IV SCH ×2 (00:17→08:40)
[2018-02-19] MEDS ORDERED: Pantoprazole 40 MG Tab.CR PO SCH (06:00)
[2018-02-19 06:55] LABS: ANION GAP 11.5; CHLORIDE,CL 107 mmol/L (101-111); SODIUM,NA 137 mmol/L (135-145)
[2018-02-19] MEDS ORDERED: Atenolol 50 MG Tab PO SCH (09:00)
[2018-02-19] MEDS ORDERED: UMECLIDINIUM BROMIDE INH SCH (09:00)
[2018-02-19] MEDS ORDERED: Non-Formulary Medication 1 Each (Apixaban [Eliquis] 2.5 MG) PO SCH (09:00)
[2018-02-19] MEDS ORDERED: Aspirin 81 MG Tab.EC PO SCH (09:00)
[2018-02-19] MEDS ORDERED: Clopidogrel 75 MG Tab PO SCH (09:00)
[2018-02-19] MEDS ORDERED: Non-Formulary Medication 1 Each (Potassium [Potassium] 99 MG) PO SCH (09:00)
[2018-02-19] MEDS ORDERED: Isosorbide Mononitrate 30 MG Tab.ER PO SCH (11:00)
[2018-02-19] MEDS ORDERED: CREON 12000 UNIT PO PRN (11:30)
[2018-02-19] MEDS: CREON 12000 UNIT PO SCH ×3 (12:22→12:49)
--- NOTE | 2018-02-19 14:19 | PCM.DCSUM1 ---
Discharge Summary - Hospital Course HPI Initial Comments: Patient admitted for recurrent pancreatitis. Diagnosis: Stroke: No - Discharge Data Discharge Date: 02/19/18 Discharge Disposition: Home, Self-Care 01 Condition: Stable - Discharge Diagnosis/Problem(s) (1) PAD (peripheral artery disease) SNOMED Code(s): 203033070, [id number] ICD Code: I73.9 - PERIPHERAL VASCULAR DISEASE, UNSPECIFIED Status: Acute Current Visit: Yes - Patient Instructions Diet: Heart Healthy Diet Activity: As Tolerated Driving: May Drive Today Showering/Bathing: May Shower Notify Provider of: Fever, Increased Pain, Nausea and/or Vomiting - Discharge Plan Home Medications: Home Meds Aspirin [Lo-Dose Aspirin EC] 81 mg PO DAILY 12/29/17 [History] Atenolol 50 mg PO DAILY 12/29/17 [History] Clopidogrel Bisulfate [Clopidogrel] 75 mg PO DAILY 12/29/17 [History] Creon 12,000 Unit Cap 12,000 unit PO ASDIRECTED 12/29/17 [History] Isosorbide Mononitrate [Imdur] 30 mg PO ACLUNCH 12/29/17 [History] Pantoprazole Sodium 40 mg PO DAILY 12/29/17 [History] Potassium 99 mg PO DAILY 12/29/17 [History] Tylenol 500 mg PO TID PRN 12/29/17 [History] Umeclidinium [place] [Incruse Ellipta*] 1 dose INH DAILY 12/29/17 [History] Acetaminophen [Tylenol] 650 mg PO Q4H PRN tablet 12/30/17 [Rx] oxyCODONE 5 mg PO Q4H PRN tablet 12/30/17 [Rx] Albuterol [Ventolin HFA] 2 puff INH Q6HR PRN 02/18/18 [History] Apixaban [Eliquis] 2.5 mg PO BID 02/18/18 [History] Forms: ED Department Discharge Referrals: PCP,Unobtain [Primary Care Provider] - - Discharge Summary/Plan Comment DC Time >30 min.: Yes - General Info Date of Service: 02/19/18 Admission Dx/Problem (Free Text: Admission Diagnosis/Problem Admission Diagnosis/Problem Pancreatitis Subjective Update: Patient is 57 y/o with recurrent pancreatitis, s/p cholecystectomy, PAD s/p stent, CAD s/p stent, HTN. He presented with abdominal pain that started this afternoon. Pain is generalized but mainly epigastric. He was admitted for acute on chronic pancreatitis. He was managed with IVF and oain medications. He symptoms have improved. He is tolerating diet. He is being discharge home. She will folow with his PCP and GI. Functional Status: Reports: Pain Controlled - Review of Systems General: Reports: No Symptoms HEENT: Reports: No Symptoms Pulmonary: Reports: No Symptoms Cardiovascular: Reports: No Symptoms Gastrointestinal: Reports: No Symptoms Genitourinary: Reports: No Symptoms Musculoskeletal: Reports: No Symptoms Skin: Reports: No Symptoms Neurological: Reports: No Symptoms Psychiatric: Reports: No Symptoms - Patient Data Vitals - Most Recent: Last Vital Signs Temp 98.9 F 02/19/18 11:06 Pulse 61 02/19/18 11:06 Resp 20 02/19/18 11:06 BP 131/75 02/19/18 11:06 Pulse Ox 97 02/19/18 11:06 Weight - Most Recent: 122 lb 3.2 oz I&O - Last 24 hours: Intake & Output 02/18/18 02/19/18 02/19/18 22:59 06:59 14:59 Intake Total 1600 Output Total 300 300 Balance -300 1300 Lab Results - Last 24 hrs: Laboratory Results - last 24 hr 02/18/18 02/18/18 02/18/18 Range/Units 22:05 22:09 22:09 WBC 6.8 (5.0-10.0) 10^3/uL RBC 4.43 L (4.6-6.2) 10^6/uL Hgb 11.5 L (14.0-18.0) g/dL Hct 35.5 L (40.0-54.0) % MCV 80.1 (80-100) fL MCH 26.0 L (27.0-34.0) pg MCHC 32.4 L (33.0-35.0) g/dL Plt Count 445 (150-450) 10^3/uL Neut % (Auto) 69.4 (42.2-75.2) % Lymph % (Auto) 19.3 L (20.5-50.1) % [place] % (Auto) 6.5 (2-8) % Eos % (Auto) 4.7 H (1.0-3.0) % Baso % (Auto) 0.1 (0.0-1.0) % Sodium 138 (135-145) mmol/L Potassium 3.9 (3.6-5.0) mmol/L Chloride 104 (101-111) mmol/L Carbon Dioxide 27.0 (21.0-31.0) mmol/L Anion Gap 10.9 BUN 14 (7-18) mg/dL Creatinine 0.6 (0.6-1.3) mg/dL Est Cr Clr Drug Dosing 101.60 mL/min Estimated GFR (MDRD) > 60 BUN/Creatinine Ratio 23.33 Glucose 124 H (74-105) mg/dL Calcium 8.8 (8.4-10.2) mg/dl Phosphorus 2.9 (2.5-4.6) mg/dL Magnesium 1.5 L (1.8-2.5) mg/dL Total Bilirubin 0.8 (0.2-1.0) mg/dL AST 46 H (10-42) IU/L ALT 30 (10-60) IU/L Alkaline Phosphatase 94 (42-121) IU/L Total Protein 7.8 (6.7-8.2) g/dl Albumin 3.5 (3.2-5.5) g/dl Globulin 4.3 Albumin/Globulin Ratio 0.81 Amylase 1100 H (28-100) U/L Lipase 262 H (22-51) U/L 02/19/18 02/19/18 02/19/18 Range/Units 06:20 06:20 06:20 WBC 7.1 (5.0-10.0) 10^3/uL RBC 4.07 L (4.6-6.2) 10^6/uL Hgb 10.6 L (14.0-18.0) g/dL Hct 32.6 L (40.0-54.0) % MCV 80.1 (80-100) fL MCH 26.0 L (27.0-34.0) pg MCHC 32.5 L (33.0-35.0) g/dL Plt Count 378 (150-450) 10^3/uL Neut % (Auto) 49.2 (42.2-75.2) % Lymph % (Auto) 35.5 (20.5-50.1) % [place] % (Auto) 10.2 H (2-8) % Eos % (Auto) 4.8 H (1.0-3.0) % Baso % (Auto) 0.3 (0.0-1.0) % Sodium 137 (135-145) mmol/L Potassium 3.5 L (3.6-5.0) mmol/L Chloride 107 (101-111) mmol/L Carbon Dioxide 22.0 (21.0-31.0) mmol/L Anion Gap 11.5 BUN 10 (7-18) mg/dL Creatinine 0.6 (0.6-1.3) mg/dL Est Cr Clr Drug Dosing 105.21 mL/min Estimated GFR (MDRD) > 60 BUN/Creatinine Ratio Glucose 98 (74-105) mg/dL Calcium 8.2 L (8.4-10.2) mg/dl Phosphorus (2.5-4.6) mg/dL Magnesium (1.8-2.5) mg/dL Total Bilirubin (0.2-1.0) mg/dL AST (10-42) IU/L ALT (10-60) IU/L Alkaline Phosphatase (42-121) IU/L Total Protein (6.7-8.2) g/dl Albumin (3.2-5.5) g/dl Globulin Albumin/Globulin Ratio Amylase (28-100) U/L Lipase 85 H (22-51) U/L Med Orders - Current: Current Medications Acetaminophen (Tylenol) 650 mg PO Q4H PRN PRN Reason: Pain (Mild 1-3)/fever Albuterol (Proventil Hfa) 0 gm INH Q6HR PRN PRN Reason: Wheezing Aspirin (Halfprin) 81 mg PO DAILY [facility] Last Admin: 02/19/18 08:43 Dose: 81 mg Atenolol (Tenormin) 50 mg PO DAILY [facility] Last Admin: 02/19/18 08:43 Dose: 50 mg Clopidogrel Bisulfate (Plavix) 75 mg PO DAILY [facility] Last Admin: 02/19/18 08:43 Dose: 75 mg Fentanyl (Sublimaze) 25 mcg IVPUSH Q2H PRN PRN Reason: Pain Last Admin: 02/19/18 06:21 Dose: 25 mcg Sodium Chloride (Normal Saline) 1,000 mls @ 125 mls/hr IV ASDIRECTED [facility] Last Admin: 02/19/18 08:40 Dose: 125 mls/hr Isosorbide Mononitrate (Imdur) 30 mg PO ACLUNCH [facility] Last Admin: 02/19/18 10:54 Dose: 30 mg Non-Formulary Medication (Apixaban [Eliquis]) 2.5 mg PO BID [facility] Non-Formulary Medication (Potassium [Potassium]) 99 mg PO DAILY [facility] Non-Formulary Medication (Umeclidinium [place] [Incruse Ellipta*]) 1 dose INH DAILY [facility] Ondansetron HCl (Zofran) 4 mg IVPUSH Q8H PRN PRN Reason: Nausea/Vomiting Oxycodone HCl (Oxycodone) 5 mg PO Q6H PRN PRN Reason: Pain (moderate 4-6) Oxycodone HCl (Oxycodone) 5 mg PO Q4H PRN PRN Reason: Pain (moderate 4-6) Last Admin: 02/19/18 10:54 Dose: 5 mg Pantoprazole Sodium (Protonix) 40 mg PO ACBREAKFAST [facility] Last Admin: 02/19/18 06:20 Dose: 40 mg Creon 12,000 Unit Cap Pt's Own Med* * 0 each PO TIDMEALS [facility] Last Admin: 02/19/18 12:49 Dose: 3 each Creon 12,000 Unit Cap Pt's Own Med* * 0 each PO ASDIRECTED PRN PRN Reason: SNACKS Discontinued Medications Heparin Sodium (Porcine) (Heparin Sodium) 5,000 units SUBCUT Q12H [facility] Last Admin: 02/19/18 12:21 Dose: Not Given Hydromorphone HCl (Dilaudid) 1 mg IVPUSH ONETIME ONE Stop: 02/18/18 22:04 Last Admin: 02/18/18 22:17 Dose: 1 mg Sodium Chloride (Normal Saline) 1,000 mls @ 999 mls/hr IV .BOLUS ONE Stop: 02/18/18 23:01 Last Admin: 02/18/18 22:14 Dose: 999 mls/hr Metoclopramide HCl (Reglan) 10 mg IVPUSH ONETIME ONE Stop: 02/18/18 22:04 Last Admin: 02/18/18 22:14 Dose: 10 mg - Exam General: Reports: Alert, Oriented HEENT: Reports: Pupils Equal, Pupils Reactive, EOMI, Mucous Membr. Moist/[place] Neck: Reports: Supple Lungs: Reports: Clear to Auscultation, Normal Respiratory Effort Cardiovascular: Reports: Regular Rate, Regular Rhythm GI/Abdominal Exam: Normal Bowel Sounds, Soft, Non-Tender, No Organomegaly, No Distention, No Abnormal Bruit, No Mass, Pelvis Stable (Male) Exam: No Hernia, Normal Inspection, Normal Prostate, Circumcised Rectal (Males) Exam: Normal Exam, Normal Rectal Tone, Prostate Normal Back Exam: Reports: Normal Inspection, Full Range of Motion Extremities: Normal Inspection, Normal Range of Motion, Non-Tender, No Pedal Edema, Normal Capillary Refill Skin: Reports: Warm, Dry, Intact Wound/Incisions: Reports: Healing Well Neurological: Reports: No New Focal Deficit Psy/Mental Status: Reports: Alert, Normal Affect, Normal Mood
== END 2018-02-19 15:25 | disposition home or self-care (01) | DRG 282 ==
LOC: DL.ED 21:31 → DL.MS 22:54 → UNDOADMIN 22:54 → DL.MS 23:35
PROVIDERS: ADMIT Student in an Organized Health Care Education/Training Program; ATTEND Student in an Organized Health Care Education/Training Program
DX: K85.90 Acute pancreatitis without necrosis or infection, unspecified (principal); K86.1 Other chronic pancreatitis; I73.9 Peripheral vascular disease, unspecified; I25.10 Atherosclerotic heart disease of native coronary artery without angina pectoris; J44.9 Chronic obstructive pulmonary disease, unspecified; H91.90 Unspecified hearing loss, unspecified ear; Z95.5 Presence of coronary angioplasty implant and graft; Z95.820 Peripheral vascular angioplasty status with implants and grafts; Z90.49 Acquired absence of other specified parts of digestive tract; Z79.899 Other long term (current) drug therapy; Z79.82 Long term (current) use of aspirin; Z79.01 Long term (current) use of anticoagulants; Z87.440 Personal history of urinary (tract) infections; Z87.891 Personal history of nicotine dependence
CPT/HCPCS: 36415; 80048; 80053; 82150; 83690; 83735; 84100; 85025; 96361; 96374; 96375; 99284; A9270-GY; J1170; J1644; J2765; J3010; J7030

== ENCOUNTER 2021-06-17 11:55 | Emergency (ER) | payer SELFPAY ==
--- NOTE | 2021-06-17 12:04 | EDM.PDOC ---
ED HPI GENERAL MEDICAL PROBLEM - General Chief Complaint: Respiratory Problem Stated Complaint: AMBULANCE Time Seen by Provider: 06/17/21 12:04 Source of Information: Reports: Patient, EMS, Old Records, RN, RN Notes Reviewed History Limitations: Reports: No Limitations - History of Present Illness INITIAL COMMENTS - FREE TEXT/NARRATIVE: Pt arrives to ER from home by ambulance with c/o progressively worsening shortness of breath over the last week. Today he became too short of breath to walk even a few steps, so he called 911. Pt is continuous supplemental home oxygen dependent at 2L/min. EMS reports finding the pt with oxygen saturation of 88% on 2L/NC upon initial contact. They increased the pt to 4L/min and gave a DuoNeb tx and oxygen saturation improved to 96%. Pt denies fever, chills, chest pain, edema, N/V, or syncope. Pt has Hx of severe COPD w/emphysema. He smoked cigarettes 1.5 PPD x37 years, and quit in 2018. Onset: Gradual Duration: Day(s): (3-5), Constant, Getting Worse Location: Reports: Chest Quality: Reports: Other (Denies pain) Severity: Severe Improves with: Reports: Rest Worsens with: Reports: Other (Activity/exertion) Associated Symptoms: Reports: No Other Symptoms Treatments FRONT OFFICE DIRECTOR: Reports: Breathing Treatments, Oxygen Headache Pain Score (Numeric/FACES): 1 - Related Data Allergies Allergy/AdvReac Type Severity Reaction Status Date / Time levofloxacin [From Levaquin] Allergy Airway Verified 06/17/21 13:25 Tightness Home Meds: Home Meds Aspirin [Lo-Dose Aspirin EC] 81 mg PO DAILY 12/29/17 [History] Clopidogrel Bisulfate [Clopidogrel] 75 mg PO DAILY 12/29/17 [History] Creon 12,000 Unit Cap 12,000 unit PO ASDIRECTED 12/29/17 [History] Isosorbide Mononitrate [Imdur] 30 mg PO ACLUNCH 12/29/17 [History] Pantoprazole Sodium 40 mg PO DAILY 12/29/17 [History] Acetaminophen [Tylenol] 650 mg PO Q4H PRN tablet 12/30/17 [Rx] Albuterol [Ventolin HFA] 2 puff INH Q6HR PRN 02/18/18 [History] Budesonide [Pulmicort] 1 dose INH BID 06/17/21 [History] Fluticasone/Umeclidin/Vilanter [Trelegy Ellipta 100-62.5-25] 1 dose INH DAILY 06/17/21 [History] Formoterol [Perforomist] 1 dose INH BID 06/17/21 [History] Past Medical History HEENT History: Reports: Hard of Hearing Cardiovascular History: Reports: Stents Other Cardiovascular History: 1 stent Respiratory History: Reports: COPD Other Respiratory History: Emhysema. 50% lungs functional. 25% - oxygen to the blood Gastrointestinal History: Reports: Pancreatitis Genitourinary History: Reports: UTI, Recurrent Musculoskeletal History: Reports: Fracture Other Musculoskeletal History: right little finger fx,little toe on right fx - Infectious Disease History Infectious Disease History: Reports: Chicken Pox - Past Surgical History GI Surgical History: Reports: Cholecystectomy Other Musculoskeletal Surgeries/Procedures:: Bilateral bypass to the groin area; stent to the left leg behind the knee Social & Family History - Family History Family Medical History: No Pertinent Family History - Caffeine Use Caffeine Use: Reports: None - Living Situation & Occupation Living situation: Reports: , with Spouse Occupation: Disabled ED ROS GENERAL - Review of Systems Review Of Systems: Comprehensive ROS is negative, except as noted in HPI. ED EXAM, GENERAL - Physical Exam Exam: See Below Exam Limited By: No Limitations General Appearance: Alert, No Apparent Distress, Thin, Cachetic, Other (Chronically ill appearing) Eye Exam: Bilateral Eye: Normal Inspection Ears: Normal External Exam, Hearing Grossly Normal Nose: Normal Inspection, Normal Mucosa, No Blood Throat/Mouth: Normal Lips, Normal Voice, No Airway Compromise Head: Atraumatic, Normocephalic Neck: Normal Inspection Respiratory/Chest: No Respiratory Distress, Lungs Clear, No Accessory Muscle Use, Chest Non-Tender, Decreased Breath Sounds. No: Crackles, Rales, Rhonchi, Wheezing Cardiovascular: Regular Rate, Rhythm, No Edema GI/Abdominal: Normal Bowel Sounds, Soft, Non-Tender Extremities: Normal Inspection Neurological: Alert, Oriented, No Motor/Sensory Deficits Psychiatric: Normal Mood Skin Exam: Warm, Dry, Intact Course - Vital Signs Last Recorded V/S: Last Vital Signs Temp 96.7 F L 06/17/21 12:14 Pulse 100 06/17/21 12:14 Resp 20 06/17/21 12:14 BP 163/90 H 06/17/21 12:14 Pulse Ox 7 L 06/17/21 12:14 - Orders/Labs/Meds Orders: Active Orders 24 hr Category Date Time Status Peripheral IV Care [RC] . DIRECTED Care 06/17/21 12:43 Active Respiratory Care Assess [CONS] Routine Cons 06/17/21 14:36 Ordered CULTURE BLOOD [BC] Stat Lab 06/17/21 12:57 Received CULTURE BLOOD [BC] Stat Lab 06/17/21 13:00 Results Sodium Chloride 0.9% [Saline Flush] Med 06/17/21 12:43 Active 10 ml FLUSH ASDIRECTED PRN Blood Culture x2 Reflex Set [OM.PC] Stat Oth 06/17/21 12:42 Ordered Peripheral IV Insertion Adult [OM.PC] Stat Oth 06/17/21 12:42 Ordered Medication Orders Sodium Chloride (Sodium Chloride 0.9% 10 Ml Syringe) 10 ml FLUSH ASDIRECTED PRN PRN Reason: Keep Vein Open Last Admin: 06/17/21 12:52 Dose: 10 ml Documented by: GUSTAVO Labs: Laboratory Tests 06/17/21 06/17/21 06/17/21 Range/Units 12:42 12:57 12:57 WBC 7.7 (5.0-10.0) 10^3/uL RBC 5.65 (4.6-6.2) 10^6/uL Hgb 16.3 D (14.0-18.0) g/dL Hct 48.1 (40.0-54.0) % MCV 85.1 D (80-100) fL MCH 28.8 (27.0-34.0) pg MCHC 33.9 (33.0-35.0) g/dL Plt Count 230 D (150-450) 10^3/uL Neut % (Auto) 74.2 (42.2-75.2) % Lymph % (Auto) 18.4 L (20.5-50.1) % [place] % (Auto) 6.7 (2-8) % Eos % (Auto) 0.6 L (1.0-3.0) % Baso % (Auto) 0.1 (0.0-1.0) % Sodium 139 (136-145) mmol/L Potassium 4.0 (3.5-5.1) mmol/L Chloride 99 (98-107) mmol/L Carbon Dioxide 28 (21-32) mmol/L Anion Gap 16.0 H (7-13) mEq/L BUN 14 (7-18) mg/dL Creatinine 0.85 (0.70-1.30) mg/dL Est Cr Clr Drug Dosing 81.39 mL/min Estimated GFR (MDRD) > 60 BUN/Creatinine Ratio 16.5 (No establ ref range) Glucose 93 (70-99) mg/dL Lactic Acid (0.4-2.0) mmol/L Calcium 9.3 (8.5-10.1) mg/dL Total Bilirubin 0.6 (0.2-1.0) mg/dL AST 27 (15-37) U/L ALT 31 (16-63) U/L Alkaline Phosphatase 99 (46-116) U/L Troponin I High Sens 7 (<=76) pg/mL C-Reactive Protein 0.2 (0.0-0.9) mg/dL B-Natriuretic Peptide 32 (0-100) pg/ml Total Protein 8.5 H (6.4-8.2) g/dL Albumin 4.0 (3.4-5.0) g/dL Globulin 4.5 Albumin/Globulin Ratio 0.9 Influenza Type A RNA Negative (NEGATIVE) RSV RNA (INAAT) Negative (NEGATIVE) Influenza Type B RNA Negative (NEGATIVE) SARS-CoV-2 RNA (ZEUS) Negative (NEGATIVE) 06/17/21 Range/Units 12:57 WBC (5.0-10.0) 10^3/uL RBC (4.6-6.2) 10^6/uL Hgb (14.0-18.0) g/dL Hct (40.0-54.0) % MCV (80-100) fL MCH (27.0-34.0) pg MCHC (33.0-35.0) g/dL Plt Count (150-450) 10^3/uL Neut % (Auto) (42.2-75.2) % Lymph % (Auto) (20.5-50.1) % [place] % (Auto) (2-8) % Eos % (Auto) (1.0-3.0) % Baso % (Auto) (0.0-1.0) % Sodium (136-145) mmol/L Potassium (3.5-5.1) mmol/L Chloride (98-107) mmol/L Carbon Dioxide (21-32) mmol/L Anion Gap (7-13) mEq/L BUN (7-18) mg/dL Creatinine (0.70-1.30) mg/dL Est Cr Clr Drug Dosing mL/min Estimated GFR (MDRD) BUN/Creatinine Ratio (No establ ref range) Glucose (70-99) mg/dL Lactic Acid 1.5 (0.4-2.0) mmol/L Calcium (8.5-10.1) mg/dL Total Bilirubin (0.2-1.0) mg/dL AST (15-37) U/L ALT (16-63) U/L Alkaline Phosphatase (46-116) U/L Troponin I High Sens (<=76) pg/mL C-Reactive Protein (0.0-0.9) mg/dL B-Natriuretic Peptide (0-100) pg/ml Total Protein (6.4-8.2) g/dL Albumin (3.4-5.0) g/dL Globulin Albumin/Globulin Ratio Influenza Type A RNA (NEGATIVE) RSV RNA (INAAT) (NEGATIVE) Influenza Type B RNA (NEGATIVE) SARS-CoV-2 RNA (ZUES) (NEGATIVE) Meds: Medications Generic Name Dose Route Start Last Admin Trade Name Freq PRN Reason Stop Dose Admin Sodium Chloride 10 ml 06/17/21 12:43 06/17/21 12:52 Sodium Chloride 0.9% 10 Ml Syringe FLUSH 10 ml ASDIRECTED PRN Administration Keep Vein Open Discontinued Medications Generic Name Dose Route Start Last Admin Trade Name Freq PRN Reason Stop Dose Admin Methylprednisolone Sodium Succinate 125 mg 06/17/21 12:43 06/17/21 12:52 Methylprednisolone Sodium Succinate 125 Mg/2 Ml Sdv IVPUSH 06/17/21 12:44 125 mg ONETIME ONE Administration - Radiology Interpretation Free Text/Narrative:: CT Chest: evidence of reactive airway disease and COPD. See Rad. report. Departure - Departure Time of Disposition: 15:04 Disposition: Home, Self-Care 01 Condition: Fair Clinical Impression: Acute exacerbation of chronic obstructive pulmonary disease Chronic respiratory failure Qualifiers: Respiratory failure complication: unspecified whether with hypoxia or hypercapnia Qualified Code(s): J96.10 - Chronic respiratory failure, unspecified whether with hypoxia or hypercapnia - Discharge Information *PRESCRIPTION DRUG MONITORING PROGRAM REVIEWED*: Not Applicable *COPY OF PRESCRIPTION DRUG MONITORING REPORT IN PATIENT KAYDEN: Not Applicable Instructions: Chronic Obstructive Pulmonary Disease Exacerbation Forms: ED Department Discharge Additional Instructions: Rx: Prednisone 20mg *Take with a meal. Rx: Zithromax 500mg Use your oxygen at 2 liters continuously, and use your inhaler/nebulizer as prescribed. Follow up in clinic in 3 to 4 days for recheck. Return to ER if worse at any time. Sepsis Event Note (ED) - Focused Exam Vital Signs: Vital Signs Temp Pulse Resp BP Pulse Ox 06/17/21 12:14 96.7 F L 100 20 163/90 H 7 L - My Orders Last 24 Hours: My Active Orders 06/17/21 12:42 Blood Culture x2 Reflex Set [OM.PC] Stat Peripheral IV Insertion Adult [OM.PC] Stat 06/17/21 12:43 Peripheral IV Care [RC] . DIRECTED Sodium Chloride 0.9% [Saline Flush] 10 ml FLUSH ASDIRECTED PRN 06/17/21 12:57 CULTURE BLOOD [BC] Stat 06/17/21 13:00 CULTURE BLOOD [BC] Stat 06/17/21 14:36 Respiratory Care Assess [CONS] Routine - Assessment/Plan Last 24 Hours: My Active Orders 06/17/21 12:42 Blood Culture x2 Reflex Set [OM.PC] Stat Peripheral IV Insertion Adult [OM.PC] Stat 06/17/21 12:43 Peripheral IV Care [RC] . DIRECTED Sodium Chloride 0.9% [Saline Flush] 10 ml FLUSH ASDIRECTED PRN 06/17/21 12:57 CULTURE BLOOD [BC] Stat 06/17/21 13:00 CULTURE BLOOD [BC] Stat 06/17/21 14:36 Respiratory Care Assess [CONS] Routine
[2021-06-17] MEDS ORDERED: Sodium Chloride 0.9% 10 ML Syringe FLUSH PRN (12:43)
[2021-06-17] MEDS ORDERED: methylPREDNISolone Sodium Succinate 125 MG/2 ML SDV IVPUSH ONE (12:43)
[2021-06-17 13:47] LABS: CHLORIDE,CL 99 mmol/L (98-107); SODIUM,NA 139 mmol/L (136-145)
--- NOTE | 2021-06-17 13:49 | CT ---
EXAMINATION: Chest wo Cont SEX: Male AGE: 60 years CLINICAL HISTORY: 60-year-old male with cough, wheezing, hypoxia and history of "smoking". Comparison CT scan chest 07 July 2014. Scan technique: Volume acquisition of data emergency unenhanced CT scan of the chest (bony thorax, lungs and mediastinum) obtained with patient lying supine on the Siemens multislice scanner [place], [place]. All data archived for storage, reformatting axial/sagittal/coronal planes and study. Interpretation: 1. Generalized air trapping, chronic pleural parenchymal scarring, peribronchial "cuffing" and apical cystic lesions. 2. No new signs of heart failure i.e. normal cardiac silhouette and pulmonary vascularity. No cephalization of flow, alveolar edema or dependent new pleural fluid accumulation i.e. no pleural effusions. 3. Normal midline tracheal bronchial airway. 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 4. No suspicious lung nodule or parenchymal mass lesion. No hilar or mediastinal lymphadenopathy. No bullous emphysematous lesions, new atelectasis/collapse, pneumothorax or pneumomediastinum. 5. Calcifications normal caliber thoracic and upper abdominal aorta. Calyceal calcification lower pole left kidney. Cholecystectomy. CONCLUSION: Evidence of reactive airway disease and COPD. Nonobstructing nephrolithiasis (left kidney). No new evidence of heart failure, lung malignancy, or lobar pneumonia. Graft right subclavian artery.
[2021-06-17 13:55] LABS: CORONAVIRUS COVID-19 NAA NEGATIVE (NEGATIVE); RESPIRATORY SYNCYTIAL VIR NAA NEGATIVE (NEGATIVE)
== END 2021-06-17 15:40 | disposition home or self-care (01) ==
LOC: DL.ED 11:55
DX: J44.1 Chronic obstructive pulmonary disease with (acute) exacerbation (principal); J96.10 Chronic respiratory failure, unspecified whether with hypoxia or hypercapnia; Z88.1 Allergy status to other antibiotic agents; Z79.82 Long term (current) use of aspirin; Z79.02 Long term (current) use of antithrombotics/antiplatelets; Z79.899 Other long term (current) drug therapy; Z20.822 Contact with and (suspected) exposure to COVID-19
CPT/HCPCS: 0241U; 36415; 71250; 80053; 83605; 83880; 84484; 85025; 86140; 87040; 96374; 99285; J2930

== ENCOUNTER 2022-10-15 06:22 | Inpatient (IN) | payer MEDICARE ==
[2022-10-15] MEDS ORDERED: Albuterol/Ipratropium 3.0-0.5 MG/3 ML Neb Soln NEB ONE ×3 (06:34→07:27)
[2022-10-15] MEDS ORDERED: methylPREDNISolone Sodium Succinate 125 MG/2 ML SDV IVPUSH ONE (06:35)
[2022-10-15] MEDS ORDERED: Magnesium Sulfate/Water 2 GM in Premix Bag 1 BAG IV ONE ×4 (06:35)
[2022-10-15] MEDS: Sodium Chloride 0.9% 10 ML Syringe FLUSH PRN ×2 (06:47→12:03)
[2022-10-15 07:01] LABS: BASOPHILS PERCENT AUTO 0.2 % (0.0-1.0); EOSINOPHILS PERCENT AUTO 0.8 % (1.0-3.0); HEMATOCRIT 47.2 % (40.0-54.0); HEMOGLOBIN 16.1 g/dL (14.0-18.0); LYMPHOCYTES PERCENT AUTO 6.8 % (20.5-50.1); MEAN CORPUSCULAR HEMOGLOBIN 30.4 pg (27.0-34.0); MEAN CORPUSCULAR HGB CONC 34.1 g/dL (33.0-35.0); MEAN CORPUSCULAR VOLUME 89.1 fL (80-100); MONOCYTES PERCENT AUTO 7.8 % (2-8); NEUTROPHILS PERCENT AUTO 84.4 % (42.2-75.2); PLATELET COUNT,PLT 261 10^3/uL (150-450); WHITE BLOOD CELL COUNT,WBC 11.8 10^3/uL (5.0-10.0)
[2022-10-15] MEDS ORDERED: cefTRIAXone 1 GM Vial IVPUSH ONE (07:13)
[2022-10-15 07:21] LABS: A/G RATIO 1.1; ALBUMIN 4.1 g/dL (3.4-5.0); ANION GAP 13.9 mEq/L (7-13); BILIRUBIN TOTAL 0.7 mg/dL (0.2-1.0); BUN/CREATININE RATIO 14.6 (No establ ref range); CREATININE 0.96 mg/dL (0.70-1.30); EST CRCL DRUG DOSING (CG) 70.74 mL/min; MAGNESIUM 1.6 mg/dL (1.8-2.4); POTASSIUM,K 3.9 mmol/L (3.5-5.1)
[2022-10-15 07:28] LABS: LACTIC ACID 1.5 mmol/L (0.4-2.0)
[2022-10-15 07:56] LABS: INFLUENZA A NAA NEGATIVE (NEGATIVE); INFLUENZA B NAA NEGATIVE (NEGATIVE); RESPIRATORY SYNCYTIAL VIR NAA NEGATIVE (NEGATIVE)
[2022-10-15 08:16] LABS: CORONAVIRUS COVID-19 NAA POSITIVE (NEGATIVE)
[2022-10-15] MEDS ORDERED: Albuterol 0.083% 2.5 MG/3 ML Neb Soln NEB PRN (10:48)
[2022-10-15] MEDS ORDERED: Polyethylene Glycol 3350 Powder 17 GM Packet PO PRN (10:48)
[2022-10-15] MEDS ORDERED: Docusate Sodium 100 MG Cap PO PRN (10:48)
[2022-10-15] MEDS ORDERED: Acetaminophen 325 MG Tab PO PRN (10:48)
[2022-10-15] MEDS ORDERED: Ondansetron 4 MG/2 ML SDV IVPUSH PRN (10:48)
[2022-10-15] MEDS ORDERED: Acetaminophen/HYDROcodone 325-5 MG Tab PO PRN (10:48)
[2022-10-15] MEDS ORDERED: Albuterol/Ipratropium 3.0-0.5 MG/3 ML Neb Soln NEB PRN (10:48)
[2022-10-15] MEDS ORDERED: Melatonin 3 MG Tab PO PRN (10:54)
[2022-10-15] MEDS ORDERED: Azithromycin 250 MG Tab PO ONE (10:55)
[2022-10-15] MEDS: methylPREDNISolone Sodium Succinate 125 MG/2 ML SDV IVPUSH SCH ×2 (12:00→18:53)
[2022-10-15] MEDS ORDERED: Amylase/Lipase/Protease 12,000 Unit Cap.CR PO PRN (14:09)
[2022-10-15] MEDS: Amylase/Lipase/Protease 12,000 Unit Cap.CR PO SCH (17:39)
[2022-10-15] MEDS: Budesonide 0.5 MG/2 ML Neb Susp INH SCH (17:39)
[2022-10-16] MEDS: methylPREDNISolone Sodium Succinate 125 MG/2 ML SDV IVPUSH SCH ×3 (02:56→18:23)
[2022-10-16 05:58] LABS: BASOPHILS PERCENT AUTO 0.1 % (0.0-1.0); HEMATOCRIT 44.3 % (40.0-54.0); HEMOGLOBIN 15.3 g/dL (14.0-18.0); LYMPHOCYTES PERCENT AUTO 4.5 % (20.5-50.1); MEAN CORPUSCULAR HEMOGLOBIN 30.4 pg (27.0-34.0); MEAN CORPUSCULAR HGB CONC 34.5 g/dL (33.0-35.0); MEAN CORPUSCULAR VOLUME 88.1 fL (80-100); MONOCYTES PERCENT AUTO 2.9 % (2-8); NEUTROPHILS PERCENT AUTO 92.5 % (42.2-75.2); PLATELET COUNT,PLT 248 10^3/uL (150-450); RED BLOOD CELL COUNT 5.03 10^6/uL (4.6-6.2); WHITE BLOOD CELL COUNT,WBC 16.4 10^3/uL (5.0-10.0)
[2022-10-16 06:13] LABS: ANION GAP 12.6 mEq/L (7-13); CALCIUM 8.7 mg/dL (8.5-10.1); CREATININE 0.82 mg/dL (0.70-1.30); EST CRCL DRUG DOSING (CG) 73.95 mL/min; POTASSIUM,K 4.6 mmol/L (3.5-5.1)
[2022-10-16] MEDS: Budesonide 0.5 MG/2 ML Neb Susp INH SCH ×2 (07:55→17:14)
[2022-10-16] MEDS: cefTRIAXone 1 GM Vial IVPUSH SCH (07:55)
[2022-10-16] MEDS: Sodium Chloride 0.9% 10 ML Syringe FLUSH PRN ×2 (07:55→18:22)
[2022-10-16] MEDS: Amylase/Lipase/Protease 12,000 Unit Cap.CR PO SCH ×3 (08:00→17:14)
[2022-10-16] MEDS: Pantoprazole 40 MG Tab.CR PO SCH (08:57)
[2022-10-16] MEDS: Azithromycin 250 MG Tab PO SCH (08:57)
[2022-10-16] MEDS: Aspirin 81 MG Tab.EC PO SCH (08:57)
[2022-10-16] MEDS: Clopidogrel 75 MG Tab PO SCH (08:57)
[2022-10-16] MEDS: Enoxaparin 40 MG/0.4 ML Syringe SUBCUT SCH (08:57)
[2022-10-16] MEDS ORDERED: Non-Formulary Medication 1 Each (Fluticasone/Umeclidin/Vilanter 1 EACH Blst.W.Dev) INH SCH (09:00)
[2022-10-16] MEDS: Formoterol 20 MCG/2 ML Neb *OWN MED INH SCH ×2 (09:08→17:17)
[2022-10-16] MEDS ORDERED: Isosorbide Mononitrate 30 MG Tab.ER PO SCH (11:00)
[2022-10-17] MEDS: methylPREDNISolone Sodium Succinate 125 MG/2 ML SDV IVPUSH SCH (02:30)
[2022-10-17] MEDS: Sodium Chloride 0.9% 10 ML Syringe FLUSH PRN ×4 (02:30→06:23)
[2022-10-17 05:40] LABS: HEMATOCRIT 43.2 % (40.0-54.0); HEMOGLOBIN 14.9 g/dL (14.0-18.0); MEAN CORPUSCULAR HEMOGLOBIN 30.3 pg (27.0-34.0); MEAN CORPUSCULAR HGB CONC 34.5 g/dL (33.0-35.0); PLATELET COUNT,PLT 280 10^3/uL (150-450); RED BLOOD CELL COUNT 4.91 10^6/uL (4.6-6.2); WHITE BLOOD CELL COUNT,WBC 16.6 10^3/uL (5.0-10.0)
[2022-10-17 05:46] LABS: BASOPHILS PERCENT AUTO 0.1 % (0.0-1.0); LYMPHOCYTES PERCENT AUTO 5.3 % (20.5-50.1); MONOCYTES PERCENT AUTO 3.4 % (2-8); NEUTROPHILS PERCENT AUTO 91.2 % (42.2-75.2)
[2022-10-17 05:57] LABS: LYMPHOCYTES PERCENT MAN 5 % (20-50); MONOCYTES PERCENT MAN 1 % (2-8); SEG NEUTROPHILS PERCENT MAN 94 % (42-75)
[2022-10-17 05:58] LABS: ANION GAP 13.2 mEq/L (7-13); CALCIUM 8.6 mg/dL (8.5-10.1); CREATININE 0.92 mg/dL (0.70-1.30); EST CRCL DRUG DOSING (CG) 65.91 mL/min; POTASSIUM,K 4.2 mmol/L (3.5-5.1)
[2022-10-17] MEDS: Budesonide 0.5 MG/2 ML Neb Susp INH SCH (06:05)
[2022-10-17] MEDS: cefTRIAXone 1 GM Vial IVPUSH SCH (06:18)
[2022-10-17] MEDS: Formoterol 20 MCG/2 ML Neb *OWN MED INH SCH (06:25)
[2022-10-17] MEDS: Amylase/Lipase/Protease 12,000 Unit Cap.CR PO SCH (07:46)
[2022-10-17] MEDS: Clopidogrel 75 MG Tab PO SCH (09:21)
[2022-10-17] MEDS: Pantoprazole 40 MG Tab.CR PO SCH (09:21)
[2022-10-17] MEDS: Aspirin 81 MG Tab.EC PO SCH (09:21)
[2022-10-17] MEDS: Azithromycin 250 MG Tab PO SCH (09:21)
[2022-10-17] MEDS: Enoxaparin 40 MG/0.4 ML Syringe SUBCUT SCH (09:22)
== END 2022-10-17 11:05 | disposition home or self-care (01) | DRG 190 ==
LOC: DL.ED 06:22 → UNDOADMIN 07:43 → DL.MS 07:43
PROVIDERS: ADMIT Internal Medicine; ATTEND Internal Medicine
DX: J43.9 Emphysema, unspecified (principal); U07.1 COVID-19; J96.11 Chronic respiratory failure with hypoxia; I25.10 Atherosclerotic heart disease of native coronary artery without angina pectoris; I73.9 Peripheral vascular disease, unspecified; H91.90 Unspecified hearing loss, unspecified ear; I10 Essential (primary) hypertension; Z86.718 Personal history of other venous thrombosis and embolism; Z79.82 Long term (current) use of aspirin; Z79.51 Long term (current) use of inhaled steroids; Z79.899 Other long term (current) drug therapy; Z88.1 Allergy status to other antibiotic agents; Z90.49 Acquired absence of other specified parts of digestive tract; Z98.890 Other specified postprocedural states; Z87.891 Personal history of nicotine dependence; Z99.81 Dependence on supplemental oxygen
CPT/HCPCS: 0241U; 36415; 71045; 80048; 80053; 83605; 83735; 85025; 86140; 87040; 96374; 96375; 96376; 99223; 99233; 99239; 99285; 99285-25; A9270-GY; J0696; J1650; J2930; J3475; J3490; J7606; J7620-GY

== ENCOUNTER 2024-10-01 18:21 | Inpatient (IN) | payer MEDICARE ==
[2024-10-01] MEDS: Albuterol 0.083% 2.5 MG/3 ML Neb Soln NEB ONE ×2 (18:44→19:23)
[2024-10-01] MEDS: Magnesium Sulfate 2 GM/50 mL 2 GM in Premix Bag 1 BAG IV ONE ×2 (18:47)
[2024-10-01 19:01] LABS: BASOPHILS PERCENT AUTO 0.1 % (0.0-1.0); EOSINOPHILS PERCENT AUTO 0.3 % (1.0-3.0); HEMATOCRIT 43.9 % (40.0-54.0); HEMOGLOBIN 14.9 g/dL (14.0-18.0); MEAN CORPUSCULAR HEMOGLOBIN 30.5 pg (27.0-34.0); MEAN CORPUSCULAR HGB CONC 33.9 g/dL (33.0-35.0); MONOCYTES PERCENT AUTO 9.4 % (2-8); NEUTROPHILS PERCENT AUTO 78.2 % (42.2-75.2); PLATELET COUNT,PLT 228 10^3/uL (150-450); RED BLOOD CELL COUNT 4.88 10^6/uL (4.6-6.2); WHITE BLOOD CELL COUNT,WBC 7.9 10^3/uL (5.0-10.0)
[2024-10-01 19:20] LABS: A/G RATIO 0.9; ALANINE AMINOTRANSFERASE,ALT 22 U/L (16-63); ALBUMIN 3.7 g/dL (3.4-5.0); ALKALINE PHOSPHATASE 85 U/L (46-116); ANION GAP 15.8 mEq/L (7-13); ASPARTATE AMNIOTRANSFERASE,AST 27 U/L (15-37); BILIRUBIN TOTAL 0.8 mg/dL (0.2-1.0); BLOOD UREA NITROGEN,BUN 14 mg/dL (7-18); C-REACTIVE PROTEIN 4.03 ng/dL (<=0.50); CALCIUM 9.4 mg/dL (8.5-10.1); CARBON DIOXIDE,CO2 26 mmol/L (21-32); CHLORIDE,CL 99 mmol/L (98-107); GLUCOSE RANDOM 95 mg/dL (70-99); MAGNESIUM 2.5 mg/dL (1.8-2.4); POTASSIUM,K 3.8 mmol/L (3.5-5.1); PROTEIN TOTAL,TP 7.9 g/dL (6.4-8.2); SODIUM,NA 137 mmol/L (136-145)
[2024-10-01 19:26] LABS: LACTIC ACID 1.6 mmol/L (0.4-2.0)
[2024-10-01 19:27] LABS: ESTIMATED GFR 102 mL/min (>=60)
[2024-10-01] MEDS: Take Home: Azithromycin 250 MG, 2 Tab Pack PO ONE (19:57)
[2024-10-01] MEDS: Azithromycin 500 MG in Sodium Chloride 0.9% 250 ML IV ONE (20:16)
[2024-10-01] MEDS: Ondansetron 4 MG/2 ML SDV IVPUSH ONE (20:33)
[2024-10-01] MEDS ORDERED: Metoprolol Tartrate 5 MG/5 ML SDV IVPUSH PRN (20:38)
[2024-10-01] MEDS ORDERED: Morphine 2 MG/ML SYRINGE IVPUSH PRN (20:38)
[2024-10-01] MEDS ORDERED: Albuterol/Ipratropium 3.0-0.5 MG/3 ML Neb Soln NEB PRN (20:38)
[2024-10-01] MEDS ORDERED: Naloxone 2 MG/2 ML Syringe IVPUSH PRN (20:38)
[2024-10-01] MEDS ORDERED: Ondansetron 4 MG/2 ML SDV IVPUSH PRN (20:38)
[2024-10-01] MEDS ORDERED: Sennosides/Docusate Sodium 50-8.6 MG Tab PO PRN (20:38)
[2024-10-01] MEDS ORDERED: hydrALAZINE 20 MG/ML SDV IVPUSH PRN (20:38)
[2024-10-01] MEDS ORDERED: Polyethylene Glycol 3350 Powder 17 GM Packet PO PRN (20:38)
[2024-10-01] MEDS ORDERED: Bisacodyl 5 MG Tab PO PRN (20:38)
[2024-10-01] MEDS ORDERED: Melatonin 3 MG Tab PO PRN (20:38)
[2024-10-01] MEDS ORDERED: Magnesium Hydroxide 400 MG/5 ML Susp 30 ML Cup PO PRN (20:38)
[2024-10-01] MEDS ORDERED: 50% Dextrose in Water 50 ML Syringe IVPUSH PRN (20:43)
[2024-10-01] MEDS ORDERED: Glucagon,Human Recombinant 1 MG Vial IM PRN (20:43)
[2024-10-01 21:00] LABS: CREATINE KINASE,CK 80 U/L (39-308)
[2024-10-01] MEDS ORDERED: Aminophylline 500 MG in Sodium Chloride 0.9% 500 ML IV SCH (21:15)
[2024-10-01 21:49] LABS: T4 FREE 1.41 ng/dL (0.76-1.46); TSH ULTRASENSITIVE 0.65 uIU/mL (0.36-3.74)
[2024-10-01 21:54] LABS: CORONAVIRUS COVID-19 NAA NEGATIVE (NEGATIVE); INFLUENZA A NAA POSITIVE (NEGATIVE); INFLUENZA B NAA NEGATIVE (NEGATIVE); RESPIRATORY SYNCYTIAL VIR NAA NEGATIVE (NEGATIVE)
[2024-10-01] MEDS: Sodium Chloride 0.9% 10 ML Syringe FLUSH SCH (22:00)
[2024-10-01] MEDS: AMINOPHYLLINE IV ONE (23:12)
[2024-10-01] MEDS: Sodium Chloride 0.9% 1,000 ML IV SCH (23:12)
[2024-10-01] MEDS: SODIUM CHLORIDE 0.9% IV ONE (23:12)
[2024-10-01] MEDS: cefTRIAXone 2 GM Vial IVPUSH ONE (23:13)
[2024-10-01] MEDS: Acetaminophen 325 MG Tab PO PRN (23:14)
[2024-10-01] MEDS: guaiFENesin 600 MG Tab.ER PO ONE (23:14)
[2024-10-01] MEDS: Montelukast 10 MG Tab PO ONE (23:14)
[2024-10-01] MEDS: Oseltamivir 75 MG Cap PO ONE (23:18)
[2024-10-02] MEDS: Azithromycin 250 MG Tab PO ONE (01:49)
[2024-10-02] MEDS: Aminophylline 500 MG in Sodium Chloride 0.9% 500 ML IV SCH (01:51)
[2024-10-02] MEDS: methylPREDNISolone Sodium Succinate 125 MG/2 ML SDV IVPUSH SCH (01:56)
[2024-10-02] MEDS: Pantoprazole 40 MG Tab.CR PO SCH (05:49)
[2024-10-02 06:26] LABS: BASOPHILS PERCENT AUTO 0.2 % (0.0-1.0); HEMATOCRIT 41.8 % (40.0-54.0); HEMOGLOBIN 14.1 g/dL (14.0-18.0); LYMPHOCYTES PERCENT AUTO 4.6 % (20.5-50.1); MEAN CORPUSCULAR HEMOGLOBIN 30.2 pg (27.0-34.0); MEAN CORPUSCULAR HGB CONC 33.7 g/dL (33.0-35.0); MEAN CORPUSCULAR VOLUME 89.5 fL (80-100); MONOCYTES PERCENT AUTO 0.8 % (2-8); NEUTROPHILS PERCENT AUTO 94.4 % (42.2-75.2); PLATELET COUNT,PLT 236 10^3/uL (150-450); RED BLOOD CELL COUNT 4.67 10^6/uL (4.6-6.2); WHITE BLOOD CELL COUNT,WBC 5.3 10^3/uL (5.0-10.0)
[2024-10-02 06:48] LABS: A/G RATIO 0.9; ALBUMIN 3.4 g/dL (3.4-5.0); ANION GAP 15.8 mEq/L (7-13); BILIRUBIN TOTAL 0.3 mg/dL (0.2-1.0); BUN/CREATININE RATIO 14.9 (No establ ref range); C-REACTIVE PROTEIN 4.43 ng/dL (<=0.50); CALCIUM 8.6 mg/dL (8.5-10.1); CREATININE 0.74 mg/dL (0.70-1.30); EST CRCL DRUG DOSING (CG) 68.96 mL/min; POTASSIUM,K 3.8 mmol/L (3.5-5.1); PROTEIN TOTAL,TP 7.3 g/dL (6.4-8.2)
[2024-10-02] MEDS: Tiotropium Bromide 4 GM Inhalation Spray (2.5mcg/1 dose; 10 doses) INH SCH (06:57)
[2024-10-02] MEDS: Formoterol/Mometasone 200-5 MCG 8.8 GM Inhaler INH SCH (06:57)
[2024-10-02] MEDS: Clopidogrel 75 MG Tab PO SCH (09:09)
[2024-10-02] MEDS: Oseltamivir 75 MG Cap PO SCH (09:09)
[2024-10-02] MEDS: Amylase/Lipase/Protease 12,000 Unit Cap.CR PO SCH (09:09)
[2024-10-02] MEDS: Insulin Lispro 100 Units/ML 3 ML Vial SUBCUT SCH (09:10)
[2024-10-02] MEDS: Isosorbide Mononitrate 30 MG Tab.ER PO SCH (13:41)
[2024-10-02] MEDS: guaiFENesin 600 MG Tab.ER PO SCH (18:40)
[2024-10-02] MEDS: Azithromycin 500 MG in Sodium Chloride 0.9% 250 ML IV SCH (21:00)
[2024-10-02] MEDS: Mirtazapine 15 MG Tab PO SCH (21:01)
[2024-10-02] MEDS: Acetaminophen 500 MG Tab PO SCH (21:01)
[2024-10-02] MEDS: cefTRIAXone 1 GM Vial IVPUSH SCH (21:01)
[2024-10-02] MEDS: Montelukast 10 MG Tab PO SCH (21:01)
[2024-10-03 06:39] LABS: BASOPHILS PERCENT AUTO 0.1 % (0.0-1.0); HEMATOCRIT 40.8 % (40.0-54.0); HEMOGLOBIN 13.4 g/dL (14.0-18.0); LYMPHOCYTES PERCENT AUTO 5.7 % (20.5-50.1); MEAN CORPUSCULAR HEMOGLOBIN 29.8 pg (27.0-34.0); MEAN CORPUSCULAR HGB CONC 32.8 g/dL (33.0-35.0); MEAN CORPUSCULAR VOLUME 90.7 fL (80-100); MONOCYTES PERCENT AUTO 2.9 % (2-8); NEUTROPHILS PERCENT AUTO 91.3 % (42.2-75.2); PLATELET COUNT,PLT 258 10^3/uL (150-450); WHITE BLOOD CELL COUNT,WBC 11.3 10^3/uL (5.0-10.0)
[2024-10-03 07:02] LABS: ALBUMIN 3.1 g/dL (3.4-5.0); ANION GAP 12.2 mEq/L (7-13); BILIRUBIN TOTAL 0.2 mg/dL (0.2-1.0); BUN/CREATININE RATIO 22.9 (No establ ref range); C-REACTIVE PROTEIN 1.9 ng/dL (<=0.50); CALCIUM 8.6 mg/dL (8.5-10.1); CREATININE 0.7 mg/dL (0.70-1.30); EST CRCL DRUG DOSING (CG) 72.16 mL/min; MAGNESIUM 1.9 mg/dL (1.8-2.4); POTASSIUM,K 4.2 mmol/L (3.5-5.1); PROTEIN TOTAL,TP 6.8 g/dL (6.4-8.2)
[2024-10-03 07:09] LABS: A/G RATIO 0.84
[2024-10-03] MEDS: Theophylline 300 MG Tab.ER PO SCH (09:19)
[2024-10-03] MEDS: Albuterol/Ipratropium 3.0-0.5 MG/3 ML Neb Soln NEB SCH (10:25)
[2024-10-04] MEDS: Sodium Chloride 0.9% 10 ML Syringe FLUSH PRN (00:01)
[2024-10-04 07:00] LABS: HEMATOCRIT 38.2 % (40.0-54.0); HEMOGLOBIN 12.9 g/dL (14.0-18.0); LYMPHOCYTES PERCENT AUTO 4.4 % (20.5-50.1); MEAN CORPUSCULAR HEMOGLOBIN 30.6 pg (27.0-34.0); MEAN CORPUSCULAR HGB CONC 33.8 g/dL (33.0-35.0); MEAN CORPUSCULAR VOLUME 90.5 fL (80-100); MONOCYTES PERCENT AUTO 2.1 % (2-8); NEUTROPHILS PERCENT AUTO 93.5 % (42.2-75.2); PLATELET COUNT,PLT 253 10^3/uL (150-450); RED BLOOD CELL COUNT 4.22 10^6/uL (4.6-6.2); WHITE BLOOD CELL COUNT,WBC 12.4 10^3/uL (5.0-10.0)
[2024-10-04] MEDS: Albuterol/Ipratropium 3.0-0.5 MG/3 ML Neb Soln NEB SCH (07:05)
[2024-10-04 07:15] LABS: A/G RATIO 0.82; ALBUMIN 2.8 g/dL (3.4-5.0); ANION GAP 11.4 mEq/L (7-13); BILIRUBIN TOTAL 0.2 mg/dL (0.2-1.0); BUN/CREATININE RATIO 27.1 (No establ ref range); C-REACTIVE PROTEIN 0.72 ng/dL (<=0.50); CALCIUM 8.7 mg/dL (8.5-10.1); CREATININE 0.7 mg/dL (0.70-1.30); EST CRCL DRUG DOSING (CG) 73.64 mL/min; MAGNESIUM 1.7 mg/dL (1.8-2.4); POTASSIUM,K 3.4 mmol/L (3.5-5.1); PROTEIN TOTAL,TP 6.2 g/dL (6.4-8.2)
[2024-10-04] MEDS: Potassium Chloride 10 MEQ Tab.ER PO SCH (09:31)
[2024-10-04] MEDS: Magnesium Oxide 400 MG Tab PO SCH (09:33)
[2024-10-04] MEDS: Aspirin 81 MG Tab.EC PO SCH (09:34)
[2024-10-04] MEDS: Azithromycin 250 MG Tab PO ONE (11:45)
[2024-10-04] MEDS ORDERED: Azithromycin 250 MG Tab ONE (11:52)
== END 2024-10-04 12:39 | disposition home or self-care (01) | DRG 193 ==
LOC: DL.ED 18:21 → DL.MS 20:04
PROVIDERS: ADMIT Internal Medicine; ATTEND Student in an Organized Health Care Education/Training Program
DX: J10.1 Influenza due to other identified influenza virus with other respiratory manifestations (principal); Z88.8 Allergy status to other drugs, medicaments and biological substances; J96.21 Acute and chronic respiratory failure with hypoxia; J44.0 Chronic obstructive pulmonary disease with (acute) lower respiratory infection; J44.1 Chronic obstructive pulmonary disease with (acute) exacerbation; E46 Unspecified protein-calorie malnutrition; Z68.1 Body mass index [BMI] 19.9 or less, adult; K86.1 Other chronic pancreatitis; I10 Essential (primary) hypertension; E78.5 Hyperlipidemia, unspecified; I25.10 Atherosclerotic heart disease of native coronary artery without angina pectoris; G47.33 Obstructive sleep apnea (adult) (pediatric); K21.9 Gastro-esophageal reflux disease without esophagitis; F10.10 Alcohol abuse, uncomplicated; N52.9 Male erectile dysfunction, unspecified; H91.90 Unspecified hearing loss, unspecified ear; F15.90 Other stimulant use, unspecified, uncomplicated; E83.42 Hypomagnesemia; N40.0 Benign prostatic hyperplasia without lower urinary tract symptoms; Z88.1 Allergy status to other antibiotic agents; Z79.82 Long term (current) use of aspirin; Z95.5 Presence of coronary angioplasty implant and graft; Z86.16 Personal history of COVID-19; Z98.890 Other specified postprocedural states; Z86.718 Personal history of other venous thrombosis and embolism; Z90.49 Acquired absence of other specified parts of digestive tract; Z79.51 Long term (current) use of inhaled steroids; Z79.1 Long term (current) use of non-steroidal anti-inflammatories (NSAID); Z79.899 Other long term (current) drug therapy; Z87.440 Personal history of urinary (tract) infections; Z87.81 Personal history of (healed) traumatic fracture; Z74.01 Bed confinement status; Z87.820 Personal history of traumatic brain injury; Z87.891 Personal history of nicotine dependence
CPT/HCPCS: 0241U; 36415; 71045; 80053; 80198; 82306; 82550; 82947; 83605; 83735; 84439; 84443; 84484; 85025; 86140; 87040; 87070; 87077; 87205; 93005; 93010; 94640; 94664; 96365; 99284; 99285; 87186; 99223; 99233; 99238; A9270-GY; J0280; J0456; J0696; J1815-GY; J2405; J2919; J3475; J7030; J7040; J7050

== ENCOUNTER 2024-10-15 20:23 | Inpatient (IN) | payer MEDICARE ==
[2024-10-15] MEDS ORDERED: Sodium Chloride 0.9% 10 ML Syringe FLUSH PRN (20:29)
[2024-10-15 20:46] LABS: HEMOGLOBIN 16.4 g/dL (14.0-18.0); MEAN CORPUSCULAR HEMOGLOBIN 30.3 pg (27.0-34.0); MEAN CORPUSCULAR HGB CONC 33.5 g/dL (33.0-35.0); MEAN CORPUSCULAR VOLUME 90.6 fL (80-100); PLATELET COUNT,PLT 200 10^3/uL (150-450); RED BLOOD CELL COUNT 5.41 10^6/uL (4.6-6.2); WHITE BLOOD CELL COUNT,WBC 13.9 10^3/uL (5.0-10.0)
[2024-10-15 20:48] LABS: BASOPHILS PERCENT AUTO 0.1 % (0.0-1.0); EOSINOPHILS PERCENT AUTO 1.6 % (1.0-3.0); LYMPHOCYTES PERCENT AUTO 15.9 % (20.5-50.1); MONOCYTES PERCENT AUTO 8.7 % (2-8); NEUTROPHILS PERCENT AUTO 73.7 % (42.2-75.2)
[2024-10-15] MEDS: Albuterol/Ipratropium 3.0-0.5 MG/3 ML Neb Soln NEB ONE (20:54)
[2024-10-15 21:03] LABS: PROTHROMBIN TIME 10.4 SEC (9.0-12.0); PTT,PARTIAL THROMBOPLSTIN TIME 22.6 SEC (22.0-34.0)
[2024-10-15 21:06] LABS: ALANINE AMINOTRANSFERASE,ALT 47 U/L (16-63); ALBUMIN 3.5 g/dL (3.4-5.0); ALKALINE PHOSPHATASE 79 U/L (46-116); ANION GAP 10.8 mEq/L (7-13); ASPARTATE AMNIOTRANSFERASE,AST 26 U/L (15-37); BILIRUBIN TOTAL 0.5 mg/dL (0.2-1.0); BLOOD UREA NITROGEN,BUN 19 mg/dL (7-18); BUN/CREATININE RATIO 23.2 (No establ ref range); CALCIUM 8.8 mg/dL (8.5-10.1); CARBON DIOXIDE,CO2 29 mmol/L (21-32); CHLORIDE,CL 102 mmol/L (98-107); CREATININE 0.82 mg/dL (0.70-1.30); GLUCOSE RANDOM 117 mg/dL (70-99); MAGNESIUM 1.9 mg/dL (1.8-2.4); POTASSIUM,K 3.8 mmol/L (3.5-5.1); PROTEIN TOTAL,TP 7.1 g/dL (6.4-8.2); SODIUM,NA 138 mmol/L (136-145)
[2024-10-15 21:10] LABS: ESTIMATED GFR 97 mL/min (>=60)
[2024-10-15 21:14] LABS: B-TYPE NATRIURETIC PEPTIDE,BNP 27 pg/ml (0-100)
[2024-10-15 21:20] LABS: LYMPHOCYTES PERCENT MAN 16 % (20-50); MONOCYTES PERCENT MAN 7 % (2-8); SEG NEUTROPHILS PERCENT MAN 77 % (42-75)
[2024-10-15] MEDS: diphenhydrAMINE 50 MG/ML SDV IVPUSH ONE (21:55)
[2024-10-15] MEDS: Ondansetron 4 MG/2 ML SDV IVPUSH ONE (21:56)
[2024-10-15 22:11] LABS: APPEARANCE,URINE CLEAR (CLEAR); BILIRUBIN,URINE NEGATIVE (NEGATIVE); COLOR,URINE YELLOW (YELLOW); GLUCOSE,URINE NEGATIVE (NEGATIVE); KETONES,URINE NEGATIVE (NEGATIVE); LEUKOCYTE ESTERASE,URINE NEGATIVE (NEGATIVE); NITRITE,URINE NEGATIVE (NEGATIVE); OCCULT BLOOD,URINE NEGATIVE (NEGATIVE); PH,URINE 5.5 (5.0-9.0); PROTEIN,URINE NEGATIVE (NEGATIVE); UROBILINOGEN,URINE 0.2 mg/dL (0.2-1.0)
[2024-10-15] MEDS ORDERED: Lactated Ringers 1,000 ML IV SCH (22:15)
[2024-10-15] MEDS: Iopamidol 755 Mg/ML 100 ML Bottle IVPUSH ONE (22:48)
[2024-10-15] MEDS: Piperacillin/Tazobactam 4.5 GM in Sodium Chloride 0.9% 100 ML IV ONE (23:26)
[2024-10-15] MEDS: Fluconazole 100 MG Tab PO SCH (23:42)
[2024-10-16] MEDS ORDERED: Amylase/Lipase/Protease 12,000 Unit Cap.CR PO PRN (00:35)
[2024-10-16] MEDS: Albuterol/Ipratropium 3.0-0.5 MG/3 ML Neb Soln NEB SCH (01:31)
[2024-10-16] MEDS: methylPREDNISolone Sodium Succinate 40 MG/1 ML SDV IVPUSH SCH (01:31)
[2024-10-16 01:33] LABS: CORONAVIRUS COVID-19 NAA NEGATIVE (NEGATIVE); INFLUENZA A NAA NEGATIVE (NEGATIVE); INFLUENZA B NAA NEGATIVE (NEGATIVE); RESPIRATORY SYNCYTIAL VIR NAA NEGATIVE (NEGATIVE)
[2024-10-16 01:54] LABS: APPEARANCE,URINE CLEAR (CLEAR); BILIRUBIN,URINE NEGATIVE (NEGATIVE); COLOR,URINE YELLOW (YELLOW); GLUCOSE,URINE NEGATIVE (NEGATIVE); KETONES,URINE NEGATIVE (NEGATIVE); LEUKOCYTE ESTERASE,URINE NEGATIVE (NEGATIVE); NITRITE,URINE NEGATIVE (NEGATIVE); OCCULT BLOOD,URINE NEGATIVE (NEGATIVE); PH,URINE 5.5 (5.0-9.0); PROTEIN,URINE NEGATIVE (NEGATIVE); UROBILINOGEN,URINE 0.2 mg/dL (0.2-1.0)
[2024-10-16 01:55] LABS: BACTERIA,URINE RARE /HPF (0-FEW/HPF); CALCIUM OXALATE CRYSTALS,URINE FEW /HPF (NOT SEEN); EPITHELIAL CELLS,URINE FEW /HPF (NOT SEEN); MUCUS,URINE FEW /LPF (NOT SEEN); RBC,URINE 0-5 /HPF (0-5); WBC,URINE 0-5 /HPF (0-5/HPF)
[2024-10-16] MEDS: Piperacillin/Tazobactam 4.5 GM in Sodium Chloride 0.9% 100 ML IV SCH (04:11)
[2024-10-16] MEDS: Heparin Sodium 5,000 Units/ML Vial SUBCUT SCH (05:49)
[2024-10-16] MEDS ORDERED: Piperacillin/Tazobactam 3.375 GM in Sodium Chloride 0.9% 100 ML IV SCH (06:00)
[2024-10-16 06:22] LABS: BASOPHILS PERCENT AUTO 0.1 % (0.0-1.0); HEMATOCRIT 46.4 % (40.0-54.0); HEMOGLOBIN 15.7 g/dL (14.0-18.0); LYMPHOCYTES PERCENT AUTO 2.5 % (20.5-50.1); MEAN CORPUSCULAR HEMOGLOBIN 30.9 pg (27.0-34.0); MEAN CORPUSCULAR HGB CONC 33.8 g/dL (33.0-35.0); MEAN CORPUSCULAR VOLUME 91.3 fL (80-100); MONOCYTES PERCENT AUTO 0.8 % (2-8); NEUTROPHILS PERCENT AUTO 96.6 % (42.2-75.2); PLATELET COUNT,PLT 197 10^3/uL (150-450); RED BLOOD CELL COUNT 5.08 10^6/uL (4.6-6.2); WHITE BLOOD CELL COUNT,WBC 11.2 10^3/uL (5.0-10.0)
[2024-10-16 06:43] LABS: ANION GAP 9.2 mEq/L (7-13); CALCIUM 8.9 mg/dL (8.5-10.1); CREATININE 0.85 mg/dL (0.70-1.30); EST CRCL DRUG DOSING (CG) 58.81 mL/min; MAGNESIUM 1.8 mg/dL (1.8-2.4); PHOSPHORUS 4.5 mg/dL (2.6-4.7); POTASSIUM,K 4.2 mmol/L (3.5-5.1)
[2024-10-16] MEDS: Amylase/Lipase/Protease 12,000 Unit Cap.CR PO SCH (09:50)
[2024-10-16] MEDS: Clopidogrel 75 MG Tab PO SCH (09:50)
[2024-10-16] MEDS: Magnesium Sulf/Wat 4 GM/50 mL 4 GM in Premix Bag 1 BAG IV ONE (09:51)
[2024-10-16] MEDS: Aspirin 81 MG Tab.EC PO SCH (09:51)
[2024-10-16] MEDS: Pantoprazole 40 MG Tab.CR PO SCH (09:51)
[2024-10-16] MEDS: Iopamidol 612 MG/ML 100 ML Bottle IVPUSH ONE (10:50)
[2024-10-16] MEDS: Piperacillin/Tazobactam 4.5 GM Vial ONE (13:17)
[2024-10-16] MEDS: Isosorbide Mononitrate 30 MG Tab.ER PO SCH (13:23)
[2024-10-16] MEDS ORDERED: Theophylline 300 MG Tab.ER PO SCH (17:30)
[2024-10-16] MEDS: Morphine 4 MG/ML Syringe IVPUSH ONE (17:37)
[2024-10-16] MEDS: guaiFENesin 600 MG Tab.ER PO SCH (20:08)
[2024-10-16] MEDS: Acetaminophen 500 MG Tab PO SCH (20:08)
[2024-10-17] MEDS: Morphine 4 MG/ML Syringe IVPUSH ONE (09:02)
[2024-10-17] MEDS: LORazepam 2 MG/ML SDV IVPUSH ONE (09:02)
[2024-10-17] MEDS: methylPREDNISolone Sodium Succinate 40 MG/1 ML SDV IVPUSH ONE (09:02)
[2024-10-17] MEDS: Albuterol 0.021% 0.63 MG/3 ML Neb Soln NEB PRN (09:03)
[2024-10-17] MEDS ORDERED: Morphine 4 MG/ML Syringe IVPUSH PRN (09:20)
[2024-10-17 09:23] LABS: BASE EXCESS ARTERIAL 3 mmol/L ((-2)-(+3)); BICARBONATE,ARTERIAL 28.9 mmol/L (22-26); O2 DELIVERY DEVICE NASAL CANNULA; O2 SATURATION ARTERIAL 94 % (95-100); PCO2 ARTERIAL 50 mmHg (35-45); PH,ARTERIAL 7.38 (7.35-7.45); PO2 ARTERIAL 74 mmHg (70-100)
[2024-10-17 09:24] LABS: ALLEN TEST POSITIVE
[2024-10-17] MEDS: Theophylline 300 MG Tab.ER PO SCH (11:12)
[2024-10-17] MEDS: Morphine 4 MG/ML Syringe IVPUSH SCH (11:12)
[2024-10-17] MEDS: LORazepam 2 MG/ML SDV IVPUSH PRN (18:25)
[2024-10-17] MEDS: Mirtazapine 15 MG Tab PO SCH (20:28)
[2024-10-17] MEDS: Diltiazem IR 30 MG Tab PO ONE (20:28)
[2024-10-18] MEDS ORDERED: Lidocaine 2% 20 ML MDV ONE (05:47)
[2024-10-18] MEDS ORDERED: Propofol 200 MG/20 ML SDV ONE (05:47)
[2024-10-18] MEDS: Budesonide 0.5 MG/2 ML Neb Susp NEB SCH (06:58)
[2024-10-18] MEDS: fentaNYL 100 MCG/2 ML SDV IVPUSH ONE (07:46)
[2024-10-18] MEDS: fentaNYL 100 MCG/2 ML SDV ONE (07:46)
[2024-10-18] MEDS: Etomidate 2 MG/ML 20 ML SDV IVPUSH ONE (07:49)
[2024-10-18] MEDS: Propofol 200 MG/20 ML SDV IVPUSH ONE (07:53)
[2024-10-18] MEDS: Sodium Chloride 0.9% 1,000 ML IV ONE (07:55)
[2024-10-18] MEDS: propofoL 1,000 MG/100 ML 100 ML IV SCH (07:56)
[2024-10-18] MEDS: Norepinephrine Bit/D5W Premix 250 ML IV SCH (07:58)
[2024-10-18] MEDS: Benzocaine 20% Topical Spray UD MUCMEM ONE (08:05)
[2024-10-18 09:17] LABS: O2 DELIVERY DEVICE VENTILATOR
[2024-10-18 09:20] LABS: PCO2 ARTERIAL 67 mmHg (35-45); PO2 ARTERIAL 135 mmHg (70-100)
[2024-10-18 09:21] LABS: ALLEN TEST POSITIVE; BASE EXCESS ARTERIAL 3 mmol/L ((-2)-(+3)); BICARBONATE,ARTERIAL 31.4 mmol/L (22-26); O2 SATURATION ARTERIAL 99 % (95-100)
[2024-10-18] MEDS: Sodium Chloride 0.9% 500 ML IV SCH (09:40)
[2024-10-18 10:54] LABS: O2 DELIVERY DEVICE VENTILATOR; PH,ARTERIAL 7.35 (7.35-7.45)
[2024-10-18 10:55] LABS: BASE EXCESS ARTERIAL 3 mmol/L ((-2)-(+3)); BICARBONATE,ARTERIAL 29.6 mmol/L (22-26); O2 SATURATION ARTERIAL 99 % (95-100); PCO2 ARTERIAL 55 mmHg (35-45); PO2 ARTERIAL 137 mmHg (70-100)
[2024-10-19 08:13] LABS: ALLEN TEST NOT PERFORMED
[2024-10-20 05:46] LABS: MYCOPLASMA IGM 0.15 U/L (<=0.76)
== END 2024-10-18 11:49 | DRG 189 ==
LOC: DL.ED 20:23 → DL.MS 23:25
PROVIDERS: ADMIT Internal Medicine; ATTEND Internal Medicine
DX: J96.11 Chronic respiratory failure with hypoxia (principal); J18.9 Pneumonia, unspecified organism; J44.9 Chronic obstructive pulmonary disease, unspecified; R79.89 Other specified abnormal findings of blood chemistry; J96.01 Acute respiratory failure with hypoxia; E43 Unspecified severe protein-calorie malnutrition; J44.1 Chronic obstructive pulmonary disease with (acute) exacerbation; J44.0 Chronic obstructive pulmonary disease with (acute) lower respiratory infection; Z68.1 Body mass index [BMI] 19.9 or less, adult; K86.2 Cyst of pancreas; K86.1 Other chronic pancreatitis; R64 Cachexia; Z66 Do not resuscitate; N52.9 Male erectile dysfunction, unspecified; J96.02 Acute respiratory failure with hypercapnia; H91.90 Unspecified hearing loss, unspecified ear; I25.10 Atherosclerotic heart disease of native coronary artery without angina pectoris; I10 Essential (primary) hypertension; E78.5 Hyperlipidemia, unspecified; K21.9 Gastro-esophageal reflux disease without esophagitis; G56.00 Carpal tunnel syndrome, unspecified upper limb; F10.10 Alcohol abuse, uncomplicated; N40.0 Benign prostatic hyperplasia without lower urinary tract symptoms; Z99.81 Dependence on supplemental oxygen; Z88.8 Allergy status to other drugs, medicaments and biological substances; Z79.82 Long term (current) use of aspirin; Z98.890 Other specified postprocedural states; Z87.891 Personal history of nicotine dependence; Z90.49 Acquired absence of other specified parts of digestive tract; Z79.899 Other long term (current) drug therapy
CPT/HCPCS: 0241U; 36415; 36600; 51702; 71045; 71046; 71275; 80048; 80053; 81001; 81003; 82803; 82947; 83605; 83735; 83880; 84100; 84145; 84484; 85025; 85379; 85610; 85730; 86738; 87040; 87081; 87899; 93005; 94640; 94762; 96374; 96375; 99223; 99233; 99239; 99285; 93010; A9270-GY; C1751; J1200; J1644; J2060; J2270; J2405; J2543; J2704; J2919; J3010; J3475; J3490; J7030; J7040; J7613; Q9967

== ENCOUNTER 2025-02-21 09:37 | Inpatient (IN) | payer MEDICARE ==
[2025-02-21] MEDS ORDERED: Sodium Chloride 0.9% 10 ML Syringe FLUSH PRN (09:47)
[2025-02-21 10:05] LABS: BASOPHILS PERCENT AUTO 0.0 % (0.0-1.0); EOSINOPHILS PERCENT AUTO 0.4 % (1.0-3.0); LYMPHOCYTES PERCENT AUTO 10.4 % (20.5-50.1); MONOCYTES PERCENT AUTO 6.8 % (2-8); NEUTROPHILS PERCENT AUTO 82.4 % (42.2-75.2); PLATELET COUNT,PLT 224 10^3/uL (150-450); RED BLOOD CELL COUNT 4.87 10^6/uL (4.6-6.2); WHITE BLOOD CELL COUNT,WBC 11.3 10^3/uL (5.0-10.0)
[2025-02-21] MEDS: methylPREDNISolone Sodium Succinate 125 MG/2 ML SDV IV ONE (10:16)
[2025-02-21 10:19] LABS: O2 DELIVERY DEVICE NASAL CANNULA; PCO2 VENOUS 57 mmHg (41-51); PH,VENOUS 7.32 (7.31-7.41); PO2 VENOUS 40 mmHg (35-42)
[2025-02-21 10:20] LABS: BASE EXCESS VENOUS 1.4 mmol/l ((-2)-(+3)); BICARBONATE,VENOUS 28 mmol/l (19-25); O2 SATURATION VENOUS 53.1 % (60-80)
[2025-02-21 10:26] LABS: A/G RATIO 1.0; ALANINE AMINOTRANSFERASE,ALT 17.0 U/L (16-63); ASPARTATE AMNIOTRANSFERASE,AST 20.0 U/L (15-37); BILIRUBIN TOTAL 0.8 mg/dL (0.2-1.0); BLOOD UREA NITROGEN,BUN 13.0 mg/dL (7-18); CARBON DIOXIDE,CO2 28.0 mmol/L (21-32); CHLORIDE,CL 100.0 mmol/L (98-107); CREATININE 0.68 mg/dL (0.70-1.30); EST CRCL DRUG DOSING (CG) 78.52 mL/min; GLUCOSE RANDOM 94.0 mg/dL (70-99); POTASSIUM,K 3.8 mmol/L (3.5-5.1); PROTEIN TOTAL,TP 8.2 g/dL (6.4-8.2); SODIUM,NA 138.0 mmol/L (136-145)
[2025-02-21 10:27] LABS: ESTIMATED GFR 103.0 mL/min (>=60); LACTIC ACID 1.7 mmol/L (0.4-2.0)
[2025-02-21 10:39] LABS: B-TYPE NATRIURETIC PEPTIDE,BNP 26.0 pg/ml (0-100)
[2025-02-21] MEDS: Iopamidol 755 Mg/ML 100 ML Bottle IVPUSH ONE (12:20)
[2025-02-21] MEDS ORDERED: Ondansetron 4 MG/2 ML SDV IVPUSH PRN (14:45)
[2025-02-21] MEDS ORDERED: Sennosides/Docusate Sodium 50-8.6 MG Tab PO PRN (14:45)
[2025-02-21] MEDS: Magnesium Sulfate 2 GM/50 mL 2 GM in Premix Bag 1 BAG IV ONE (16:29)
[2025-02-21] MEDS: methylPREDNISolone Sodium Succinate 125 MG/2 ML SDV IVPUSH SCH (16:29)
[2025-02-21] MEDS: Arformoterol 15 MCG/2 ML Neb Soln INH SCH (21:01)
[2025-02-21] MEDS: Budesonide 0.5 MG/2 ML Neb Susp INH SCH (21:02)
[2025-02-21] MEDS: Sodium Chloride 0.9% 10 ML Syringe FLUSH SCH (21:06)
[2025-02-22] MEDS: Sodium Chloride 0.9% 10 ML Syringe FLUSH PRN (06:25)
[2025-02-22 06:30] LABS: BASOPHILS PERCENT AUTO 0.1 % (0.0-1.0); EOSINOPHILS PERCENT AUTO 0.0 % (1.0-3.0); LYMPHOCYTES PERCENT AUTO 5.2 % (20.5-50.1); MONOCYTES PERCENT AUTO 2.4 % (2-8); NEUTROPHILS PERCENT AUTO 92.3 % (42.2-75.2); PLATELET COUNT,PLT 218 10^3/uL (150-450); RED BLOOD CELL COUNT 4.74 10^6/uL (4.6-6.2); WHITE BLOOD CELL COUNT,WBC 11.5 10^3/uL (5.0-10.0)
[2025-02-22 06:51] LABS: ALANINE AMINOTRANSFERASE,ALT 14.0 U/L (16-63); ASPARTATE AMNIOTRANSFERASE,AST 18.0 U/L (15-37); BILIRUBIN TOTAL 0.4 mg/dL (0.2-1.0); BLOOD UREA NITROGEN,BUN 12.0 mg/dL (7-18); CREATININE 0.55 mg/dL (0.70-1.30); EST CRCL DRUG DOSING (CG) 94.67 mL/min; GLUCOSE RANDOM 160.0 mg/dL (70-99); PROTEIN TOTAL,TP 7.6 g/dL (6.4-8.2)
[2025-02-22 07:00] LABS: CARBON DIOXIDE,CO2 29.0 mmol/L (21-32); CHLORIDE,CL 102.0 mmol/L (98-107); POTASSIUM,K 4.1 mmol/L (3.5-5.1); SODIUM,NA 138.0 mmol/L (136-145)
[2025-02-22 07:03] LABS: A/G RATIO 0.77; ESTIMATED GFR 110.0 mL/min (>=60)
[2025-02-22] MEDS: Amylase/Lipase/Protease 12,000 Unit Cap.CR PO SCH (08:14)
[2025-02-22] MEDS: methylPREDNISolone Sodium Succinate 125 MG/2 ML SDV IVPUSH SCH (12:28)
[2025-02-23] MEDS ORDERED: methylPREDNISolone Sodium Succinate 125 MG/2 ML SDV IVPUSH SCH (01:00)
== END 2025-02-22 21:10 | DRG 193 ==
LOC: DL.ED 09:37 → DL.MS 13:37 → DL.ED 13:46
PROVIDERS: ADMIT Student in an Organized Health Care Education/Training Program; ATTEND Student in an Organized Health Care Education/Training Program
DX: J18.9 Pneumonia, unspecified organism (principal); J96.01 Acute respiratory failure with hypoxia; J44.1 Chronic obstructive pulmonary disease with (acute) exacerbation; H91.90 Unspecified hearing loss, unspecified ear; I25.10 Atherosclerotic heart disease of native coronary artery without angina pectoris; I10 Essential (primary) hypertension; G47.30 Sleep apnea, unspecified; J43.9 Emphysema, unspecified; K21.9 Gastro-esophageal reflux disease without esophagitis; N40.0 Benign prostatic hyperplasia without lower urinary tract symptoms; E83.42 Hypomagnesemia; R73.9 Hyperglycemia, unspecified; T38.0X5A Adverse effect of glucocorticoids and synthetic analogues, initial encounter; N20.0 Calculus of kidney; E88.09 Other disorders of plasma-protein metabolism, not elsewhere classified; Z98.890 Other specified postprocedural states; Z90.49 Acquired absence of other specified parts of digestive tract; Z87.891 Personal history of nicotine dependence; Z88.1 Allergy status to other antibiotic agents; Z79.82 Long term (current) use of aspirin; Z79.02 Long term (current) use of antithrombotics/antiplatelets; Y92.89 Other specified places as the place of occurrence of the external cause; Z79.899 Other long term (current) drug therapy; Z99.81 Dependence on supplemental oxygen
CPT/HCPCS: 36415; 71045; 71275; 80053; 82803; 83605; 83735; 83880; 84484; 85025; 85379; 87040 ×2; 87428; 93010; 94762 ×2; 99284; A9270; J0456; J0696; J2919; J7030; J7050; Q9967; 93005; 93970; 94010; 94640; 94667; 96365; 96375; 99232; 99238; 99285-25; J3475; J3490